=== PATIENT | female | born 1935 | race Caucasian/White ===

== ENCOUNTER 2016-03-21 18:13 | Emergency (ER) | payer MEDICARE, OTHER ==
[~2016-03-21] VITALS: Wt 79.4 kg
[~2016-03-21 18:13] MED LIST: ALBUTEROL2.5 MG/0.5 INH; ASPI-COR81 MG PO; ASPIR 8181 MG PO; DYAZIDE 25 MG-31 CAP PO; FLOVENT 110 M110 MCG INH; KERLONE PO; LAMISIL AT11 TP; LEVAQUIN750 MG PO; MACROBID100 M1 PO; PREDNISONE20 M1 PO; PROVERA10 MG PO; PYRIDIUM200 MG PO; SUPER EPA1 SGL PO; VIBRAMYCIN100 MG PO; VITAMIN D1000 IU PO; ZITHROMAX250 MG PO
[2016-03-21 18:53] LABS: BILIRUBIN NEGATIVE (NEGATIVE); BLOOD NEGATIVE (NEGATIVE); CLARITY CLEAR (CLEAR); COLOR YELLOW (YELLOW); GLUCOSE NEGATIVE (NEGATIVE); KETONE NEGATIVE (NEGATIVE); LEUKO ESTERASE TRACE (NEGATIVE); NITRITE NEGATIVE (NEGATIVE); PH 5.5 (5.0-9.0); PROTEIN NEGATIVE (NEGATIVE); SPECIFIC GRAVITY 1.015 (1.005-1.030); UROBILINOGEN 0.2 E.U./dl (0.2-1.0)
[2016-03-21 18:59] LABS: MUCOUS TRACE; RBC 0-2 rbc/hpf (0-2); URINE REFLEX COMMENT YES (NO)
[2016-03-21 19:03] VITALS: BP 151/64
[2016-03-21 19:36] LABS: BASO % 0.5 % (0.0-1.0); EOS # 0.2 10*3/uL (0.0-0.4); EOS % 1.9 % (1.0-4.0); HEMATOCRIT 42.4 % (37.0-47.0); HEMOGLOBIN 13.7 g/dl (12.0-16.0); LYMPH # 1.2 10*3/uL (1.3-4.4); LYMPH % 14.7 % (27.0-41.0); MEAN CELL VOLUME 84.8 fl (81.0-99.0); MEAN CORPUSCULAR HGB 27.4 pg (27.0-31.0); MEAN CORPUSCULAR HGB CONC 32.3 g/dl (33.0-37.0); MEAN PLATELET VOLUME 9.5 fl (9.6-12.3); MONO # 1.1 10*3/uL (0.1-1.0); MONO % 13.1 % (3.0-9.0); NEUT # 5.6 10*3/uL (2.3-7.9); NEUT % 69.6 % (47.0-73.0); PLATELET COUNT AUTOMATED 150 10*3/uL (130-400); WHITE BLOOD COUNT 8.1 10*3/uL (4.8-10.8)
[2016-03-21 19:49] LABS: BUN 16 mg/dl (7-24); CARBON DIOXIDE 27 mmol/L (21-32); CHLORIDE 101 mmol/L (98-107); EST GLOM FILT AFRICAN AMERICAN > 60 ml/min; GLUCOSE 108 mg/dL (65-99); SODIUM 139 mmol/L (136-145)
[2016-03-21] MEDS ORDERED: ZYRTEC10 MG PO (20:09)
[2016-03-21] MEDS ORDERED: PREDNISONE10 MG PO (20:09)
== END 2016-03-21 20:14 | disposition home or self-care (01) ==
LOC: ED 18:13
PROVIDERS: Nurse Practitioner Family
DX: B34.9 Viral infection, unspecified (principal); Z88.1 Allergy status to other antibiotic agents; Z88.6 Allergy status to analgesic agent; Z91.018 Allergy to other foods; Z79.899 Other long term (current) drug therapy

== ENCOUNTER 2016-09-03 12:54 | Emergency (ER) | payer MEDICARE, OTHER ==
[~2016-09-03] VITALS: Ht 152.4 cm; Wt 77.1 kg
[~2016-09-03 12:54] MED LIST changes: +PREDNISONE10 MG PO; +ZYRTEC10 MG PO
[2016-09-03] MEDS ORDERED: ASPIRIN ADULT L81 M2 PO (13:07)
[2016-09-03 14:11] LABS: BASO # 0.1 10*3/uL (0.0-0.1); BASO % 0.4 % (0.0-1.0); EOS # 0.3 10*3/uL (0.0-0.4); EOS % 2.4 % (1.0-4.0); HEMATOCRIT 32.6 % (37.0-47.0); HEMOGLOBIN 10.6 g/dl (12.0-16.0); IG # 0.1 10*3/uL (0.0-0.1); LYMPH # 2.2 10*3/uL (1.3-4.4); LYMPH % 16.9 % (27.0-41.0); MEAN CELL VOLUME 83.4 fl (81.0-99.0); MEAN CORPUSCULAR HGB 27.1 pg (27.0-31.0); MEAN CORPUSCULAR HGB CONC 32.5 g/dl (33.0-37.0); MEAN PLATELET VOLUME 9.4 fl (9.6-12.3); MONO # 0.8 10*3/uL (0.1-1.0); MONO % 6.4 % (3.0-9.0); NEUT # 9.7 10*3/uL (2.3-7.9); NEUT % 73.5 % (47.0-73.0); PLATELET COUNT AUTOMATED 183 10*3/uL (130-400); RED BLOOD COUNT 3.91 10*6/uL (4.10-5.10); RED CELL DISTRI WIDTH 13.6 % (0-14.5); WHITE BLOOD COUNT 13.2 10*3/uL (4.8-10.8)
[2016-09-03 14:24] LABS: ALBUMIN 3.5 gm/dl (3.1-4.5); ALKALINE PHOSPHATASE 53 U/L (45-117); BILIRUBIN, TOTAL 0.3 mg/dl (0.2-1.0); BUN 18 mg/dl (7-24); CARBON DIOXIDE 30 mmol/L (21-32); CHLORIDE 100 mmol/L (98-107); EST GLOM FILT AFRICAN AMERICAN > 60 ml/min; GLUCOSE 145 mg/dL (65-99); POTASSIUM 3.5 mmol/L (3.5-5.1); SGOT/AST 13 IU/L (3-35); SGPT/ALT 17 U/L (12-78); SODIUM 138 mmol/L (136-145); TOTAL PROTEIN 6.9 gm/dL (6.4-8.2)
[2016-09-03 14:44] VITALS: BP 118/72
== END 2016-09-03 16:39 | disposition home or self-care (01) ==
LOC: ED 12:54
PROVIDERS: Registered Nurse
DX: N93.9 Abnormal uterine and vaginal bleeding, unspecified (principal); N85.9 Noninflammatory disorder of uterus, unspecified; Z88.1 Allergy status to other antibiotic agents; Z88.6 Allergy status to analgesic agent; Z91.018 Allergy to other foods; Z79.82 Long term (current) use of aspirin

== ENCOUNTER 2016-10-07 08:28 | Emergency (ER) | payer MEDICARE, OTHER ==
[~2016-10-07] VITALS: Ht 147.3 cm; Wt 77.1 kg
[~2016-10-07 08:28] MED LIST changes: +ASPIRIN ADULT L81 M2 PO
[2016-10-07 08:32] VITALS: BP 152/56
[2016-10-07 09:03] LABS: BASO # 0.1 10*3/uL (0.0-0.1); BASO % 0.6 % (0.0-1.0); EOS # 0.5 10*3/uL (0.0-0.4); EOS % 4.5 % (1.0-4.0); HEMATOCRIT 35.1 % (37.0-47.0); HEMOGLOBIN 11.1 g/dl (12.0-16.0); LYMPH # 2.3 10*3/uL (1.3-4.4); LYMPH % 21.5 % (27.0-41.0); MEAN CELL VOLUME 83.8 fl (81.0-99.0); MEAN CORPUSCULAR HGB 26.5 pg (27.0-31.0); MEAN CORPUSCULAR HGB CONC 31.6 g/dl (33.0-37.0); MEAN PLATELET VOLUME 8.9 fl (9.6-12.3); MONO # 0.8 10*3/uL (0.1-1.0); MONO % 7.4 % (3.0-9.0); NEUT # 6.9 10*3/uL (2.3-7.9); NEUT % 65.7 % (47.0-73.0); PLATELET COUNT AUTOMATED 185 10*3/uL (130-400); RED BLOOD COUNT 4.19 10*6/uL (4.10-5.10); RED CELL DISTRI WIDTH 13.7 % (0-14.5); WHITE BLOOD COUNT 10.5 10*3/uL (4.8-10.8)
[2016-10-07 09:12] LABS: PROTHROMBIN TIME 11.1 SECONDS (9.0-12.4)
[2016-10-07 09:17] LABS: ALBUMIN 3.7 gm/dl (3.1-4.5); ALKALINE PHOSPHATASE 63 U/L (45-117); BILIRUBIN, TOTAL 0.3 mg/dl (0.2-1.0); BUN 18 mg/dl (7-24); C-REACTIVE PROTEIN 0.78 MG/DL (0-0.3); CARBON DIOXIDE 28 mmol/L (21-32); CHLORIDE 104 mmol/L (98-107); EST GLOM FILT AFRICAN AMERICAN > 60 ml/min; GLUCOSE 107 mg/dL (65-99); MAGNESIUM 1.7 mg/dL (1.5-2.1); POTASSIUM 3.8 mmol/L (3.5-5.1); SGOT/AST 14 IU/L (3-35); SGPT/ALT 16 U/L (12-78); SODIUM 138 mmol/L (136-145); TOTAL PROTEIN 7.7 gm/dL (6.4-8.2)
[2016-10-07] MEDS ORDERED: PREDNISONE20 M1 PO (10:50)
== END 2016-10-07 11:26 | disposition home or self-care (01) ==
LOC: ED 08:28
PROVIDERS: Emergency Medicine
DX: G89.29 Other chronic pain (principal); M25.561 Pain in right knee; Z88.1 Allergy status to other antibiotic agents; Z88.6 Allergy status to analgesic agent; Z91.018 Allergy to other foods; Z79.899 Other long term (current) drug therapy; Z88.4 Allergy status to anesthetic agent; Z79.82 Long term (current) use of aspirin

== ENCOUNTER 2017-01-29 18:15 | Emergency (ER) | payer MEDICARE, OTHER ==
[~2017-01-29] VITALS: Ht 154.9 cm; Wt 77.1 kg
[2017-01-29 18:26] VITALS: BP 160/50
[2017-01-29 18:59] LABS: BASO % 0.4 % (0.0-1.0); EOS # 0.4 10*3/uL (0.0-0.4); EOS % 3.9 % (1.0-4.0); HEMATOCRIT 33.5 % (37.0-47.0); HEMOGLOBIN 10.4 g/dl (12.0-16.0); LYMPH # 2.5 10*3/uL (1.3-4.4); LYMPH % 22.7 % (27.0-41.0); MEAN CELL VOLUME 81.7 fl (81.0-99.0); MEAN CORPUSCULAR HGB 25.4 pg (27.0-31.0); MEAN PLATELET VOLUME 9.4 fl (9.6-12.3); MONO # 0.8 10*3/uL (0.1-1.0); MONO % 7.5 % (3.0-9.0); NEUT # 7.1 10*3/uL (2.3-7.9); NEUT % 65.2 % (47.0-73.0); PLATELET COUNT AUTOMATED 212 10*3/uL (130-400); RED CELL DISTRI WIDTH 14.2 % (0-14.5); WHITE BLOOD COUNT 10.9 10*3/uL (4.8-10.8)
[2017-01-29 19:12] LABS: CREATININE 1.14 mg/dL (0.55-1.02); POTASSIUM 3.5 mmol/L (3.5-5.1)
== END 2017-01-29 20:33 | disposition home or self-care (01) ==
LOC: ED 18:15
PROVIDERS: Physician Assistant
DX: N93.9 Abnormal uterine and vaginal bleeding, unspecified (principal); Z79.899 Other long term (current) drug therapy; Z79.82 Long term (current) use of aspirin; Z88.1 Allergy status to other antibiotic agents; Z88.5 Allergy status to narcotic agent

== ENCOUNTER 2017-04-09 06:25 | Emergency (ER) | payer MEDICARE, OTHER ==
[~2017-04-09] VITALS: Ht 152.4 cm; Wt 77.1 kg
[2017-04-09 06:44] VITALS: BP 152/53
[2017-04-09 07:50] LABS: BASO # 0.1 10*3/uL (0.0-0.1); BASO % 0.5 % (0.0-1.0); EOS # 0.5 10*3/uL (0.0-0.4); EOS % 4.7 % (1.0-4.0); HEMATOCRIT 31.9 % (37.0-47.0); HEMOGLOBIN 9.8 g/dl (12.0-16.0); LYMPH # 1.9 10*3/uL (1.3-4.4); LYMPH % 18.9 % (27.0-41.0); MEAN CORPUSCULAR HGB 23.3 pg (27.0-31.0); MEAN CORPUSCULAR HGB CONC 30.7 g/dl (33.0-37.0); MEAN PLATELET VOLUME 8.9 fl (9.6-12.3); MONO # 0.6 10*3/uL (0.1-1.0); MONO % 6.3 % (3.0-9.0); NEUT # 7.1 10*3/uL (2.3-7.9); NEUT % 69.2 % (47.0-73.0); PLATELET COUNT AUTOMATED 236 10*3/uL (130-400); RED CELL DISTRI WIDTH 15.1 % (0-14.5); WHITE BLOOD COUNT 10.2 10*3/uL (4.8-10.8)
[2017-04-09 08:00] LABS: ACT PARTIAL THROMBO TIME 24.2 SECONDS (20.8-31.5); INTERNATIONAL NORM RATIO 1.1 (2.0-3.5)
[2017-04-09 08:06] LABS: ALBUMIN 3.6 gm/dl (3.1-4.5); ALKALINE PHOSPHATASE 73 U/L (45-117); BUN 16 mg/dl (7-24); CHLORIDE 102 mmol/L (98-107); LIPASE 124 U/L (73-393); POTASSIUM 3.9 mmol/L (3.5-5.1); SGOT/AST 12 IU/L (3-35); SGPT/ALT 13 U/L (12-78); SODIUM 139 mmol/L (136-145); TOTAL PROTEIN 7.9 gm/dL (6.4-8.2)
[2017-04-09 08:11] LABS: TROPONIN I < 0.015 ng/ml (<0.045)
[2017-04-10] MEDS ORDERED: PREDNISONE10 MG PO (12:57)
[2017-04-10] MEDS ORDERED: CYCLOBENZAPRINE10 MG PO (12:57)
== END 2017-04-09 10:08 | disposition home or self-care (01) ==
LOC: ED 06:25
PROVIDERS: Emergency Medicine
DX: S29.012A Strain of muscle and tendon of back wall of thorax, initial encounter (principal); R73.9 Hyperglycemia, unspecified; Z88.6 Allergy status to analgesic agent; Z88.1 Allergy status to other antibiotic agents; Z79.899 Other long term (current) drug therapy; Z79.82 Long term (current) use of aspirin; X58.XXXA Exposure to other specified factors, initial encounter; Y93.89 Activity, other specified; Y92.89 Other specified places as the place of occurrence of the external cause; Y99.8 Other external cause status

== ENCOUNTER 2017-04-10 10:50 | Emergency (ER) | payer MEDICARE, OTHER ==
[~2017-04-10] VITALS: Ht 152.4 cm; Wt 77.1 kg
[2017-04-10] MEDS ORDERED: CYCLOBENZAPRINE10 MG PO (12:57)
[2017-04-10] MEDS ORDERED: PREDNISONE10 MG PO (12:57)
[2017-04-10 13:02] VITALS: BP 136/42
== END 2017-04-10 13:02 | disposition home or self-care (01) ==
LOC: ED 10:50
DX: M25.511 Pain in right shoulder (principal); Z88.1 Allergy status to other antibiotic agents; Z88.6 Allergy status to analgesic agent; Z91.018 Allergy to other foods; Z79.899 Other long term (current) drug therapy

== ENCOUNTER 2017-04-30 22:03 | Emergency (ER) | payer MEDICARE, OTHER ==
[~2017-04-30] VITALS: Ht 152.4 cm; Wt 77.1 kg
[2017-04-30 22:03] VITALS: BP 180/72
[~2017-04-30 22:03] MED LIST changes: +CYCLOBENZAPRINE10 MG PO
[2017-04-30] MEDS ORDERED: ACYCLOVIR800 MG PO (22:23)
[2017-04-30] MEDS ORDERED: MOTRIN 600 MG E4 TAB PO (22:23)
== END 2017-04-30 23:12 | disposition home or self-care (01) ==
LOC: ED 22:03
DX: B02.9 Zoster without complications (principal); R21 Rash and other nonspecific skin eruption; Z79.899 Other long term (current) drug therapy; Z88.1 Allergy status to other antibiotic agents; Z88.5 Allergy status to narcotic agent

== ENCOUNTER 2017-05-04 01:24 | Emergency (ER) | payer MEDICARE, OTHER ==
[~2017-05-04] VITALS: Ht 152.4 cm; Wt 77.1 kg
[~2017-05-04 01:24] MED LIST changes: +ACYCLOVIR800 MG PO; +MOTRIN 600 MG E4 TAB PO
[2017-05-04 01:28] VITALS: BP 120/50
== END 2017-05-04 01:37 | disposition home or self-care (01) ==
LOC: ED 01:24
DX: B02.9 Zoster without complications (principal); Z88.1 Allergy status to other antibiotic agents; Z88.5 Allergy status to narcotic agent; Z79.899 Other long term (current) drug therapy

== ENCOUNTER 2017-05-17 19:27 | Emergency (ER) | payer MEDICARE, OTHER ==
[~2017-05-17 19:27] MED LIST changes: +FAMCICLOVIR500 MG PO; +NEURONTIN100 MG PO; +TRAMADOL HCL50 MG PO; +ZOFRAN ODT4 MG SL; +ZOVIRAX30 GM T
[2017-05-17 19:41] VITALS: BP 130/70
[2017-05-17] MEDS ORDERED: ZOFRAN4 MG PO (19:55)
== END 2017-05-17 19:59 | disposition home or self-care (01) ==
LOC: ED 19:27
DX: B02.8 Zoster with other complications (principal); R03.0 Elevated blood-pressure reading, without diagnosis of hypertension; Z79.899 Other long term (current) drug therapy; Z91.041 Radiographic dye allergy status; Z88.1 Allergy status to other antibiotic agents; Z88.5 Allergy status to narcotic agent; Z91.018 Allergy to other foods

== ENCOUNTER → 2017-08-23 | Outpatient (CLI) | payer MEDICARE, OTHER ==
[~2017-08-23] MED LIST changes: +IRON325 M1 PO; +OMEPRAZOLE20 M2 PO; +ZOFRAN4 MG PO
[2017-08-23 15:06] LABS: HEMATOCRIT 22.2 % (37.0-47.0); HEMOGLOBIN 6.2 g/dl (12.0-16.0); MEAN CELL VOLUME 71.6 fl (81.0-99.0); MEAN CORPUSCULAR HGB CONC 27.9 g/dl (33.0-37.0); MEAN PLATELET VOLUME 9.7 fl (9.6-12.3); RED BLOOD COUNT 3.1 10*6/uL (4.10-5.10); RED CELL DISTRI WIDTH 17.1 % (0-14.5); WHITE BLOOD COUNT 11.9 10*3/uL (4.8-10.8)
[2017-08-23 15:34] LABS: ALBUMIN 3.5 gm/dl (3.1-4.5); POTASSIUM 3.5 mmol/L (3.5-5.1)
[2017-08-23 15:38] LABS: CREATININE 1.24 mg/dL (0.55-1.02); TOTAL PROTEIN 7.9 gm/dL (6.4-8.2)
== END | disposition home or self-care (01) ==
LOC: LAB 14:10
PROVIDERS: Family Medicine
DX: I10 Essential (primary) hypertension (principal); E78.00 Pure hypercholesterolemia, unspecified; E55.9 Vitamin D deficiency, unspecified; D70.9 Neutropenia, unspecified; R53.83 Other fatigue

== ENCOUNTER 2017-09-03 14:08 | Emergency (ER) | payer MEDICARE, OTHER ==
[~2017-09-03] VITALS: Ht 152.4 cm; Wt 77.1 kg
--- NOTE | ~2017-09-03 | EKG ---
[place], [place] ELECTROCARDIOGRAM REPORT NAME: JESUS FRIEDMAN UNIT #: [id number] ROOM: DOCTOR: EPIPHANY DRAFT REPORT BIRTHDATE: [birth year] [facility] Test Date: 2017-09-03 Test Time: 14:32:45 Pat Name: JESUS FRIEDMAN Department: Room: Gender: F Furnace Attendant: : 1935 Requested By: YANN QUIROZ Order Number: [id number] Reading MD: Felton Salgado MD Measurements Intervals [place] Rate: 78 P: 25 MD: 189 QRS: -7 QRSD: 86 T: 25 QT: 400 QTc: 456 Interpretive Statements Sinus rhythm Nonspecific ST-T changes Electronically Signed On 09-04-2017 14:42:25 PDT by Felton Salgado MD CM:EKGRPT:ELECTROCARDIOGRAM REPORT [id number] YANN QUIROZ EPIPHANY DRAFT REPORT YANN QUIROZ
[~2017-09-03 14:08] MED LIST changes: -IRON325 M1 PO; -OMEPRAZOLE20 M2 PO
[2017-09-03 14:37] LABS: HEMATOCRIT 18.7 % (37.0-47.0); MEAN CORPUSCULAR HGB 18.8 pg (27.0-31.0); MEAN CORPUSCULAR HGB CONC 27.3 g/dl (33.0-37.0); MEAN PLATELET VOLUME 9.2 fl (9.6-12.3); PLATELET COUNT AUTOMATED 196 10*3/uL (130-400); RED BLOOD COUNT 2.71 10*6/uL (4.10-5.10); RED CELL DISTRI WIDTH 17.4 % (0-14.5); WHITE BLOOD COUNT 9.7 10*3/uL (4.8-10.8)
[2017-09-03 14:49] LABS: ACT PARTIAL THROMBO TIME 20.4 SECONDS (20.8-31.5)
[2017-09-03 14:54] LABS: ALBUMIN 3.7 gm/dl (3.1-4.5); ALKALINE PHOSPHATASE 66 U/L (45-117); BUN 21 mg/dl (7-24); CHLORIDE 101 mmol/L (98-107); CREATININE 1.17 mg/dL (0.55-1.02); POTASSIUM 3.7 mmol/L (3.5-5.1); SGOT/AST 10 IU/L (3-35); SGPT/ALT 13 U/L (12-78); SODIUM 137 mmol/L (136-145); TOTAL PROTEIN 7.6 gm/dL (6.4-8.2)
[2017-09-03 14:55] LABS: TROPONIN I < 0.015 ng/ml (<0.045)
[2017-09-03 14:58] LABS: MICROCYTOSIS SLIGHT; PLATELET SUFFICIENCY NORMAL (NORMAL); TOTAL CELLS COUNTED 100 #CELLS
[2017-09-03 14:59] LABS: POLYCHROMASIA SLIGHT
[2017-09-03 15:02] LABS: HEMOGLOBIN 5.1 g/dl (12.0-16.0)
[2017-09-03 16:33] VITALS: BP 152/58
[2017-09-22] MEDS ORDERED: IRON325 M1 PO (14:53)
[2017-09-22] MEDS ORDERED: OMEPRAZOLE20 M2 PO (15:10)
== END 2017-09-03 17:13 | disposition short-term general hospital (02) ==
LOC: ED 14:08
PROVIDERS: Nurse Practitioner Family
DX: D62 Acute posthemorrhagic anemia (principal); N93.9 Abnormal uterine and vaginal bleeding, unspecified; Z91.041 Radiographic dye allergy status; Z88.1 Allergy status to other antibiotic agents; Z88.6 Allergy status to analgesic agent; Z91.018 Allergy to other foods; Z79.899 Other long term (current) drug therapy

== ENCOUNTER → 2017-09-08 | Outpatient (CLI) | payer MEDICARE, OTHER ==
[~2017-09-08] MED LIST changes: +IRON325 M1 PO; +OMEPRAZOLE20 M2 PO
[2017-09-08 11:01] LABS: HEMOGLOBIN 10.9 g/dl (12.0-16.0); MEAN CELL VOLUME 77.2 fl (81.0-99.0); MEAN CORPUSCULAR HGB 22.8 pg (27.0-31.0); MEAN CORPUSCULAR HGB CONC 29.5 g/dl (33.0-37.0); MEAN PLATELET VOLUME 9.6 fl (9.6-12.3); RED BLOOD COUNT 4.79 10*6/uL (4.10-5.10); RED CELL DISTRI WIDTH 23.7 % (0-14.5); WHITE BLOOD COUNT 12.3 10*3/uL (4.8-10.8)
[2017-09-08 11:10] LABS: RETICULOCYTE % 3.93 % (0.50-2.50)
[2017-09-08 11:25] LABS: IRON 124 ug/dL (50-170); TOTAL IRON BINDING CAPACITY 414 ug/dl (250-450)
== END | disposition home or self-care (01) ==
LOC: LAB 10:29
PROVIDERS: Family Medicine
DX: D64.9 Anemia, unspecified (principal); R53.83 Other fatigue; R06.02 Shortness of breath

== ENCOUNTER → 2017-09-09 | Outpatient (CLI) | payer MEDICARE, OTHER | END | disposition home or self-care (01) | LOC: CARD 13:09 | DX: R01.1 Cardiac murmur, unspecified (principal) ==

== ENCOUNTER → 2017-09-20 | Outpatient (CLI) | payer MEDICARE, OTHER ==
[2017-09-20 08:11] LABS: HEMATOCRIT 36.9 % (37.0-47.0); HEMOGLOBIN 10.9 g/dl (12.0-16.0); MEAN CELL VOLUME 80.4 fl (81.0-99.0); MEAN CORPUSCULAR HGB 23.7 pg (27.0-31.0); MEAN CORPUSCULAR HGB CONC 29.5 g/dl (33.0-37.0); MEAN PLATELET VOLUME 8.9 fl (9.6-12.3); RED BLOOD COUNT 4.59 10*6/uL (4.10-5.10); RED CELL DISTRI WIDTH 24.1 % (0-14.5); WHITE BLOOD COUNT 9.4 10*3/uL (4.8-10.8)
== END | disposition home or self-care (01) ==
LOC: LAB 07:51
PROVIDERS: Family Medicine
DX: D64.9 Anemia, unspecified (principal)

== ENCOUNTER → 2017-09-24 | Outpatient (CLI) | payer MEDICARE, OTHER ==
[2017-09-24 08:09] LABS: PHOSPHOROUS 3.6 mg/dL (2.5-4.9)
== END | disposition home or self-care (01) ==
LOC: LAB 07:06
DX: N85.9 Noninflammatory disorder of uterus, unspecified (principal)

== ENCOUNTER → 2017-09-29 | Day surgery (SDC) | payer MEDICARE, OTHER ==
[~2017-09-29] VITALS: Ht 152.4 cm; Wt 77.1 kg
--- NOTE | ~2017-09-29 | O ---
[place], [place] OPERATIVE NOTE NAME: ELDERJESUS Alonso UNIT #: [id number] ROOM: DOCTOR: MENDEZ PIMENTEL MD BIRTHDATE: [birth year] DOS: 09/29/2017 GASTROENDOSCOPIC REPORT INDICATION: An 81-year-old patient, who was presented with chief complaint of having been discovered to have a pelvic mass and has been a concern if there is a pathology in the colon involved with rectal bleed. ALLERGIES: KEFLEX, CODEINE AND NORVASC. PAST MEDICAL HISTORY: Hypertension. PAST SURGICAL HISTORY: None. SOCIAL HISTORY: Nonsmoker, nonalcohol consumer. ALLERGIES: IVP DYE AND LEVAQUIN FAR FOOD IS CONCERNED ORANGE JUICES. PROCEDURE: Today's procedure part of investigation is colonoscopy plus piecemeal polypectomy x 2. PREMEDICATION: Propofol. SCOPE: Olympus folding colonoscope 10L video. REPORT: After putting the patient in left lateral position and application of lubricant to the scope, the scope was introduced. Thereafter, under direct visualization, advanced through the length of colon without difficulty. Base of the cecum explored, appendiceal orifice identified, ileocecal valve was defined. Scope was gradually withdrawn back to the rectal pouch. Two sessile polypoid lesion with piecemeal polypectomy removed. The patient extubated and tolerated procedure well. IMPRESSION: Two small sessile polypoid lesion rectal pouch is status post piecemeal polypectomy, otherwise normal colonoscopic examination. PLAN AND DISCUSSION: The patient is deferred for followup in a pelvic mass that she is telling me, I do not have the data regarding the above findings. Thank you very much again for your very kind referral. [place], [place] OPERATIVE NOTE NAME: ELDERJESUS UNIT #: [id number] ROOM: DOCTOR: MENDEZ PIMENTEL MD BIRTHDATE: [birth year] MENDEZ PIMENTEL MD CM:OPRECORD:OPERATIVE NOTE 4 8 MENDEZ PIMENTEL MD 09/29/17916 interface
[2017-09-29 07:01] VITALS: BP 133/101
[2017-09-29 08:11] VITALS: BP 105/40
[2017-09-29 08:26] VITALS: BP 123/55
[2017-09-29 08:41] VITALS: BP 141/56
== END | disposition home or self-care (01) ==
LOC: SDC 09-23 15:30
DX: K62.1 Rectal polyp (principal); K62.5 Hemorrhage of anus and rectum; I10 Essential (primary) hypertension; K21.9 Gastro-esophageal reflux disease without esophagitis; F41.9 Anxiety disorder, unspecified; J45.909 Unspecified asthma, uncomplicated; D64.9 Anemia, unspecified; E66.9 Obesity, unspecified; Z88.1 Allergy status to other antibiotic agents; Z88.5 Allergy status to narcotic agent; Z88.8 Allergy status to other drugs, medicaments and biological substances; Z91.018 Allergy to other foods; Z87.891 Personal history of nicotine dependence; Z68.33 Body mass index [BMI] 33.0-33.9, adult

== ENCOUNTER → 2017-12-19 | Outpatient (CLI) | payer MEDICARE, OTHER ==
[2017-12-19 09:02] LABS: HEMATOCRIT 35.2 % (37.0-47.0); HEMOGLOBIN 10.7 g/dl (12.0-16.0); MEAN CELL VOLUME 74.4 fl (81.0-99.0); MEAN CORPUSCULAR HGB 22.6 pg (27.0-31.0); MEAN CORPUSCULAR HGB CONC 30.4 g/dl (33.0-37.0); MEAN PLATELET VOLUME 9.4 fl (9.6-12.3); RED BLOOD COUNT 4.73 10*6/uL (4.10-5.10); RED CELL DISTRI WIDTH 15.8 % (0-14.5); WHITE BLOOD COUNT 10.5 10*3/uL (4.8-10.8)
[2017-12-19 09:32] LABS: ALBUMIN 3.4 gm/dl (3.1-4.5); CREATININE 1.3 mg/dL (0.55-1.02)
[2017-12-19 09:37] LABS: POTASSIUM 3.7 mmol/L (3.5-5.1)
== END | disposition home or self-care (01) ==
LOC: LAB 08:27
PROVIDERS: Family Medicine
DX: D64.9 Anemia, unspecified (principal); R53.83 Other fatigue

== ENCOUNTER → 2018-03-21 | Outpatient (CLI) | payer MEDICARE, OTHER ==
[2018-03-21 14:38] LABS: HEMATOCRIT 40.1 % (37.0-47.0); MEAN CELL VOLUME 82.3 fl (81.0-99.0); MEAN CORPUSCULAR HGB 26.7 pg (27.0-31.0); MEAN CORPUSCULAR HGB CONC 32.4 g/dl (33.0-37.0); MEAN PLATELET VOLUME 9.4 fl (9.6-12.3); RED BLOOD COUNT 4.87 10*6/uL (4.10-5.10); RED CELL DISTRI WIDTH 15.3 % (0-14.5); WHITE BLOOD COUNT 8.6 10*3/uL (4.8-10.8)
[2018-03-21 15:09] LABS: ALBUMIN 3.5 gm/dl (3.1-4.5); CREATININE 1.21 mg/dL (0.55-1.02); POTASSIUM 3.8 mmol/L (3.5-5.1); TOTAL PROTEIN 7.7 gm/dL (6.4-8.2)
== END | disposition home or self-care (01) ==
LOC: LAB 14:09
PROVIDERS: Family Medicine
DX: E55.9 Vitamin D deficiency, unspecified (principal); E78.00 Pure hypercholesterolemia, unspecified; E74.9 Disorder of carbohydrate metabolism, unspecified; R53.83 Other fatigue

== ENCOUNTER → 2018-06-17 | Outpatient (CLI) | payer MEDICARE, OTHER ==
[~2018-06-17] MED LIST changes: +MOTION SICKNESS25 MG PO
[2018-06-17 10:46] LABS: ALBUMIN 3.8 gm/dl (3.1-4.5); BUN 22 mg/dl (7-24); CHLORIDE 104 mmol/L (98-107); CREATININE 1.05 mg/dL (0.55-1.02); PHOSPHOROUS 3.1 mg/dL (2.5-4.9); POTASSIUM 4.1 mmol/L (3.5-5.1); SODIUM 138 mmol/L (136-145)
== END | disposition home or self-care (01) ==
LOC: LAB 09:53
PROVIDERS: Family Medicine
DX: E55.9 Vitamin D deficiency, unspecified (principal); N18.4 Chronic kidney disease, stage 4 (severe)

== ENCOUNTER 2018-09-01 06:01 | Emergency (ER) | payer MEDICARE, OTHER ==
[~2018-09-01] VITALS: Ht 152.4 cm; Wt 81.6 kg
--- NOTE | ~2018-09-01 | EKG ---
[place], [place] ELECTROCARDIOGRAM REPORT NAME: JESUS FRIEDMAN UNIT #: [id number] ROOM: DOCTOR: EPIPHANY DRAFT REPORT BIRTHDATE: [birth year] [facility] Test Date: 2018-09-01 Test Time: 06:39:23 Pat Name: JESUS FRIEDMAN Department: Room: Gender: F Real Estate Lawyer: : 1935 Requested By: CHAN MAHMOOD Order Number: [id number] Reading MD: Robbi Dennis MD Measurements Intervals [place] Rate: 59 P: 33 MT: 209 QRS: -3 QRSD: 84 T: 62 QT: 421 QTc: 417 Interpretive Statements Sinus rhythm Low voltage, extremity and precordial leads Consider anterior infarct Compared to ECG 09/03/2017 14:32:45 Low QRS voltage now present Myocardial infarct finding now present ST (T wave) deviation no longer present Electronically Signed On 09-06-2018 4:05:16 PDT by Robbi Dennis MD CM:EKGRPT:ELECTROCARDIOGRAM REPORT [id number] CHAN MAHMOOD MD EPIPHKAMILLA DRAFT REPORT CHAN MAHMOOD MD
[~2018-09-01 06:01] MED LIST changes: -MOTION SICKNESS25 MG PO
[2018-09-01 07:09] LABS: BASO % 0.5 % (0.0-1.0); EOS # 0.4 10*3/uL (0.0-0.4); EOS % 5.5 % (1.0-4.0); HEMATOCRIT 43.8 % (37.0-47.0); LYMPH # 1.9 10*3/uL (1.3-4.4); LYMPH % 23.7 % (27.0-41.0); MEAN CELL VOLUME 86.9 fl (81.0-99.0); MEAN CORPUSCULAR HGB 27.8 pg (27.0-31.0); MEAN PLATELET VOLUME 9.1 fl (9.6-12.3); MONO # 0.6 10*3/uL (0.1-1.0); MONO % 7.6 % (3.0-9.0); NEUT % 62.3 % (47.0-73.0); PLATELET COUNT AUTOMATED 152 10*3/uL (130-400); RED BLOOD COUNT 5.04 10*6/uL (4.10-5.10); RED CELL DISTRI WIDTH 12.4 % (0-14.5)
[2018-09-01 07:21] LABS: ACT PARTIAL THROMBO TIME 28.2 SECONDS (20.0-32.1)
[2018-09-01 07:27] LABS: ALBUMIN 3.6 gm/dl (3.1-4.5); ALKALINE PHOSPHATASE 79 U/L (45-117); BUN 18 mg/dl (7-24); CHLORIDE 104 mmol/L (98-107); CREATININE 0.95 mg/dL (0.55-1.02); LIPASE 112 U/L (73-393); POTASSIUM 3.8 mmol/L (3.5-5.1); SGOT/AST 31 IU/L (3-35); SGPT/ALT 36 U/L (12-78); SODIUM 139 mmol/L (136-145); TOTAL PROTEIN 7.7 gm/dL (6.4-8.2)
[2018-09-01 07:30] LABS: TROPONIN I < 0.015 ng/ml (<0.045)
[2018-09-01 08:40] VITALS: BP 138/44
[2018-09-01] MEDS ORDERED: MOTION SICKNESS25 MG PO (08:49)
== END 2018-09-01 08:50 | disposition home or self-care (01) ==
LOC: ED 06:01
PROVIDERS: Emergency Medicine Emergency Medical Services
DX: H83.09 Labyrinthitis, unspecified ear (principal); R42 Dizziness and giddiness; R11.2 Nausea with vomiting, unspecified; R19.7 Diarrhea, unspecified; R79.1 Abnormal coagulation profile; Z91.041 Radiographic dye allergy status; Z88.1 Allergy status to other antibiotic agents; Z88.6 Allergy status to analgesic agent; Z91.018 Allergy to other foods; Z88.4 Allergy status to anesthetic agent; Z79.899 Other long term (current) drug therapy

== ENCOUNTER 2018-09-16 07:06 | Emergency (ER) | payer MEDICARE, OTHER ==
[~2018-09-16] VITALS: Ht 149.8 cm; Wt 81.6 kg
--- NOTE | ~2018-09-16 | EKG ---
[place], [place] ELECTROCARDIOGRAM REPORT NAME: JESUS FRIEDMAN UNIT #: [id number] ROOM: DOCTOR: EPIPHANY DRAFT REPORT BIRTHDATE: [birth year] [facility] Test Date: 2018-09-16 Test Time: 07:47:07 Pat Name: JESUS FRIEDMAN Department: Room: [address] Gender: F Support Coordinator: : 1935 Requested By: ROXANE AVILA Order Number: [id number] Reading MD: Enrico Patel Measurements Intervals [place] Rate: 57 P: 12 [place]: 208 QRS: -11 QRSD: 85 T: 41 QT: 417 QTc: 406 Interpretive Statements Sinus rhythm Low voltage, precordial leads Anteroseptal infarct, old Compared to ECG 09/01/2018 06:39:23 No significant changes Electronically Signed On 09-16-2018 12:51:53 PDT by Enrico Patel CM:EKGRPT:ELECTROCARDIOGRAM REPORT [id number] ROXANE BARRAGAN DRAFT REPORT ROXANE AVILA MD
[~2018-09-16 07:06] MED LIST changes: +MOTION SICKNESS25 MG PO
[2018-09-16 07:55] LABS: BASO # 0.1 10*3/uL (0.0-0.1); BASO % 0.7 % (0.0-1.0); EOS # 0.4 10*3/uL (0.0-0.4); EOS % 5.4 % (1.0-4.0); HEMATOCRIT 40.8 % (37.0-47.0); HEMOGLOBIN 13.1 g/dl (12.0-16.0); LYMPH # 1.5 10*3/uL (1.3-4.4); LYMPH % 20.7 % (27.0-41.0); MEAN CORPUSCULAR HGB 27.9 pg (27.0-31.0); MEAN CORPUSCULAR HGB CONC 32.1 g/dl (33.0-37.0); MEAN PLATELET VOLUME 9.4 fl (9.6-12.3); MONO # 0.5 10*3/uL (0.1-1.0); MONO % 6.8 % (3.0-9.0); NEUT # 4.9 10*3/uL (2.3-7.9); NEUT % 66.1 % (47.0-73.0); PLATELET COUNT AUTOMATED 172 10*3/uL (130-400); RED BLOOD COUNT 4.69 10*6/uL (4.10-5.10); RED CELL DISTRI WIDTH 12.3 % (0-14.5); WHITE BLOOD COUNT 7.4 10*3/uL (4.8-10.8)
[2018-09-16 08:05] LABS: BUN 19 mg/dl (7-24); CHLORIDE 104 mmol/L (98-107); CREATININE 1.12 mg/dL (0.55-1.02); SODIUM 138 mmol/L (136-145)
[2018-09-16 08:06] LABS: ACT PARTIAL THROMBO TIME 28.8 SECONDS (20.0-32.1)
[2018-09-16 08:08] LABS: TROPONIN I < 0.015 ng/ml (<0.045)
[2018-09-16 08:32] LABS: BILIRUBIN NEGATIVE (NEGATIVE); BLOOD NEGATIVE (NEGATIVE); CLARITY CLEAR (CLEAR); COLOR YELLOW (YELLOW); GLUCOSE NEGATIVE (NEGATIVE); KETONE NEGATIVE (NEGATIVE); LEUKO ESTERASE 1+ (NEGATIVE); NITRITE NEGATIVE (NEGATIVE); UROBILINOGEN 0.2 E.U./dl (0.2-1.0)
[2018-09-16 08:41] LABS: BACTERIA 1+; RBC 0-2 rbc/hpf (0-2)
[2018-09-16 09:10] VITALS: BP 157/73
== END 2018-09-16 09:15 | disposition home or self-care (01) ==
LOC: ED 07:06
PROVIDERS: Emergency Medicine
DX: H81.11 Benign paroxysmal vertigo, right ear (principal); I10 Essential (primary) hypertension; Z91.041 Radiographic dye allergy status; Z88.1 Allergy status to other antibiotic agents; Z88.5 Allergy status to narcotic agent; Z91.018 Allergy to other foods; Z79.899 Other long term (current) drug therapy

== ENCOUNTER 2018-09-28 12:20 | Emergency (ER) | payer MEDICARE, OTHER ==
[~2018-09-28] VITALS: Ht 149.8 cm; Wt 79.4 kg
[2018-09-28 12:20] VITALS: BP 154/60
== END 2018-09-28 20:24 | disposition home or self-care (01) ==
LOC: ED 12:20
DX: S63.502A Unspecified sprain of left wrist, initial encounter (principal); Z91.041 Radiographic dye allergy status; Z88.1 Allergy status to other antibiotic agents; Z88.5 Allergy status to narcotic agent; Z91.018 Allergy to other foods; Z79.899 Other long term (current) drug therapy; X50.0XXA Overexertion from strenuous movement or load, initial encounter; Y93.89 Activity, other specified; Y92.89 Other specified places as the place of occurrence of the external cause; Y99.8 Other external cause status

== ENCOUNTER 2018-10-21 10:36 | Emergency (ER) | payer MEDICARE, OTHER ==
[~2018-10-21] VITALS: Ht 152.4 cm; Wt 77.1 kg
[2018-10-21 10:38] VITALS: BP 141/53
== END 2018-10-21 13:35 | disposition home or self-care (01) ==
LOC: ED 10:36
DX: M25.562 Pain in left knee (principal); M79.605 Pain in left leg; M19.90 Unspecified osteoarthritis, unspecified site; Z88.1 Allergy status to other antibiotic agents; Z88.6 Allergy status to analgesic agent; Z91.018 Allergy to other foods; Z88.4 Allergy status to anesthetic agent; Z79.899 Other long term (current) drug therapy; Z91.041 Radiographic dye allergy status

== ENCOUNTER → 2018-11-02 | Outpatient (CLI) | payer MEDICARE, OTHER ==
[~2018-11-02] MED LIST changes: +SEPTDS PO
== END | disposition home or self-care (01) ==
LOC: CARD 08:47
DX: I35.1 Nonrheumatic aortic (valve) insufficiency (principal)

== ENCOUNTER 2018-11-07 06:18 | Emergency (ER) | payer MEDICARE, OTHER ==
[~2018-11-07] VITALS: Wt 81.2 kg
[~2018-11-07 06:18] MED LIST changes: -SEPTDS PO
[2018-11-07 07:00] LABS: BASO # 0.1 10*3/uL (0.0-0.1); BASO % 0.7 % (0.0-1.0); EOS # 0.5 10*3/uL (0.0-0.4); HEMATOCRIT 41.3 % (37.0-47.0); HEMOGLOBIN 13.3 g/dl (12.0-16.0); LYMPH # 2.1 10*3/uL (1.3-4.4); LYMPH % 26.4 % (27.0-41.0); MEAN CELL VOLUME 88.4 fl (81.0-99.0); MEAN CORPUSCULAR HGB 28.5 pg (27.0-31.0); MEAN CORPUSCULAR HGB CONC 32.2 g/dl (33.0-37.0); MONO # 0.6 10*3/uL (0.1-1.0); MONO % 7.8 % (3.0-9.0); NEUT # 4.7 10*3/uL (2.3-7.9); NEUT % 58.7 % (47.0-73.0); PLATELET COUNT AUTOMATED 168 10*3/uL (130-400); RED BLOOD COUNT 4.67 10*6/uL (4.10-5.10); RED CELL DISTRI WIDTH 12.9 % (0-14.5)
[2018-11-07 07:11] LABS: ACT PARTIAL THROMBO TIME 27.9 SECONDS (20.0-32.1)
[2018-11-07 07:19] LABS: ALBUMIN 3.6 gm/dl (3.1-4.5); ALKALINE PHOSPHATASE 75 U/L (45-117); BUN 18 mg/dl (7-24); CHLORIDE 105 mmol/L (98-107); CREATININE 0.94 mg/dL (0.55-1.02); LIPASE 102 U/L (73-393); POTASSIUM 3.8 mmol/L (3.5-5.1); SGOT/AST 15 IU/L (3-35); SGPT/ALT 19 U/L (12-78); SODIUM 139 mmol/L (136-145); TOTAL PROTEIN 7.5 gm/dL (6.4-8.2)
[2018-11-07 07:20] LABS: TROPONIN I < 0.015 ng/ml (<0.045)
[2018-11-07 08:40] LABS: BILIRUBIN NEGATIVE (NEGATIVE); BLOOD NEGATIVE (NEGATIVE); CLARITY CLEAR (CLEAR); COLOR YELLOW (YELLOW); GLUCOSE NEGATIVE (NEGATIVE); KETONE NEGATIVE (NEGATIVE); LEUKO ESTERASE 1+ (NEGATIVE); NITRITE NEGATIVE (NEGATIVE); UROBILINOGEN 0.2 E.U./dl (0.2-1.0)
[2018-11-07 08:55] LABS: EPITHELIAL CELLS 16-20; RBC 0-2 rbc/hpf (0-2)
[2018-11-07 10:21] VITALS: BP 132/78
[2018-11-07] MEDS ORDERED: SEPTDS PO (11:33)
== END 2018-11-07 11:38 | disposition home or self-care (01) ==
LOC: ED 06:18
PROVIDERS: Family Medicine
DX: I10 Essential (primary) hypertension (principal); N39.0 Urinary tract infection, site not specified; Z79.899 Other long term (current) drug therapy; Z91.041 Radiographic dye allergy status; Z88.1 Allergy status to other antibiotic agents; Z88.5 Allergy status to narcotic agent; Z91.018 Allergy to other foods

== ENCOUNTER 2019-01-18 05:08 | Emergency (ER) | payer MEDICARE, OTHER ==
[~2019-01-18] VITALS: Ht 152.4 cm; Wt 77.1 kg
--- NOTE | ~2019-01-18 | EKG ---
[place], [place] ELECTROCARDIOGRAM REPORT NAME: JESUS FRIEDMAN UNIT #: [id number] ROOM: DOCTOR: EPIPHANY DRAFT REPORT BIRTHDATE: [birth year] [facility] Test Date: 2019-01-18 Test Time: 05:44:41 Pat Name: JESUS FRIEDMAN Department: Room: Gender: F Assembly Associate: : 1935 Requested By: JARROD WOLFE Order Number: [id number] Reading MD: Measurements Intervals [place] Rate: 69 P: 33 SC: 196 QRS: -18 QRSD: 131 T: 99 QT: 431 QTc: 462 Interpretive Statements Sinus rhythm Left bundle branch block Compared to ECG 11/07/2018 07:03:52 Left bundle-branch block now present Myocardial infarct finding no longer present CM:EKGRPT:ELECTROCARDIOGRAM REPORT [id number] JARROD ROWLAND DRAFT REPORT JARROD WOLFE DO
[~2019-01-18 05:08] MED LIST changes: +SEPTDS PO
[2019-01-18] MEDS ORDERED: LISINOPRIL5 MG PO (05:28)
[2019-01-18 05:31] VITALS: BP 130/62
[2019-01-18 06:05] LABS: BASO # 0.1 10*3/uL (0.0-0.1); BASO % 0.8 % (0.0-1.0); EOS # 0.4 10*3/uL (0.0-0.4); HEMATOCRIT 40.7 % (37.0-47.0); HEMOGLOBIN 12.8 g/dl (12.0-16.0); LYMPH # 2.1 10*3/uL (1.3-4.4); LYMPH % 25.8 % (27.0-41.0); MEAN CELL VOLUME 87.5 fl (81.0-99.0); MEAN CORPUSCULAR HGB 27.5 pg (27.0-31.0); MEAN CORPUSCULAR HGB CONC 31.4 g/dl (33.0-37.0); MEAN PLATELET VOLUME 9.2 fl (9.6-12.3); MONO # 0.7 10*3/uL (0.1-1.0); MONO % 8.2 % (3.0-9.0); NEUT # 4.7 10*3/uL (2.3-7.9); NEUT % 59.3 % (47.0-73.0); PLATELET COUNT AUTOMATED 177 10*3/uL (130-400); RED BLOOD COUNT 4.65 10*6/uL (4.10-5.10); RED CELL DISTRI WIDTH 12.5 % (0-14.5)
[2019-01-18 06:15] LABS: ALBUMIN 3.4 gm/dl (3.1-4.5); ALKALINE PHOSPHATASE 77 U/L (45-117); BUN 21 mg/dl (7-24); CHLORIDE 107 mmol/L (98-107); CREATININE 1.07 mg/dL (0.55-1.02); POTASSIUM 3.9 mmol/L (3.5-5.1); SGOT/AST 17 IU/L (3-35); SGPT/ALT 21 U/L (12-78); SODIUM 138 mmol/L (136-145); TOTAL PROTEIN 7.4 gm/dL (6.4-8.2)
[2019-01-18 06:17] LABS: TROPONIN I < 0.015 ng/ml (<0.045)
== END 2019-01-18 06:43 | disposition home or self-care (01) ==
LOC: ED 05:08
PROVIDERS: Emergency Medicine
DX: I10 Essential (primary) hypertension (principal); J45.909 Unspecified asthma, uncomplicated; K21.9 Gastro-esophageal reflux disease without esophagitis; R79.1 Abnormal coagulation profile; Z79.899 Other long term (current) drug therapy; Z88.1 Allergy status to other antibiotic agents; Z91.041 Radiographic dye allergy status; Z88.6 Allergy status to analgesic agent; Z91.018 Allergy to other foods; Z88.4 Allergy status to anesthetic agent

== ENCOUNTER 2019-09-23 21:07 | Emergency (ER) | payer MEDICARE, OTHER ==
[~2019-09-23] VITALS: Ht 152.4 cm; Wt 72.6 kg
[~2019-09-23 21:07] MED LIST changes: +LISINOPRIL5 MG PO
[2019-09-23 21:20] VITALS: BP 154/62
[2019-09-23] MEDS ORDERED: DIPROSONE 0.05%15 GM T (21:35)
== END 2019-09-23 22:01 | disposition home or self-care (01) ==
LOC: ED 21:07
DX: R21 Rash and other nonspecific skin eruption (principal); L29.9 Pruritus, unspecified; I10 Essential (primary) hypertension; J45.909 Unspecified asthma, uncomplicated; K21.9 Gastro-esophageal reflux disease without esophagitis; Z91.041 Radiographic dye allergy status; Z88.1 Allergy status to other antibiotic agents; Z91.018 Allergy to other foods; Z88.4 Allergy status to anesthetic agent; Z79.899 Other long term (current) drug therapy

== ENCOUNTER 2019-10-10 20:20 | Emergency (ER) | payer MEDICARE ==
[~2019-10-10] VITALS: Ht 152.4 cm; Wt 74.8 kg
[~2019-10-10 20:20] MED LIST changes: +DIPROSONE 0.05%15 GM T
[2019-10-10 21:37] LABS: BASO % 0.4 % (0.0-1.0); EOS # 0.3 10*3/uL (0.0-0.4); EOS % 2.5 % (1.0-4.0); HEMATOCRIT 44.8 % (37.0-47.0); LYMPH # 2.1 10*3/uL (1.3-4.4); LYMPH % 21.6 % (27.0-41.0); MEAN CELL VOLUME 84.2 fl (81.0-99.0); MEAN CORPUSCULAR HGB 26.9 pg (27.0-31.0); MEAN CORPUSCULAR HGB CONC 31.9 g/dl (33.0-37.0); MEAN PLATELET VOLUME 9.5 fl (9.6-12.3); MONO # 0.9 10*3/uL (0.1-1.0); MONO % 8.9 % (3.0-9.0); NEUT # 6.6 10*3/uL (2.3-7.9); NEUT % 66.4 % (47.0-73.0); PLATELET COUNT AUTOMATED 187 10*3/uL (130-400); RED BLOOD COUNT 5.32 10*6/uL (4.10-5.10); RED CELL DISTRI WIDTH 13.1 % (0-14.5); WHITE BLOOD COUNT 9.9 10*3/uL (4.8-10.8)
[2019-10-10 21:39] LABS: BILIRUBIN NEGATIVE (NEGATIVE); BLOOD NEGATIVE (NEGATIVE); CLARITY CLEAR (CLEAR); COLOR YELLOW (YELLOW); GLUCOSE NEGATIVE (NEGATIVE); KETONE NEGATIVE (NEGATIVE); LEUKO ESTERASE 1+ (NEGATIVE); NITRITE NEGATIVE (NEGATIVE); UROBILINOGEN 0.2 E.U./dl (0.2-1.0)
[2019-10-10 21:45] LABS: WBC 16-20 wbc/hpf (0-5)
[2019-10-10 21:47] LABS: ACT PARTIAL THROMBO TIME 31.2 SECONDS (20.0-32.1)
[2019-10-10 21:57] LABS: ALBUMIN 3.8 gm/dl (3.1-4.5); ALKALINE PHOSPHATASE 84 U/L (45-117); BUN 21 mg/dl (7-24); CHLORIDE 102 mmol/L (98-107); CREATININE 1.12 mg/dL (0.55-1.02); LIPASE 96 U/L (73-393); POTASSIUM 3.7 mmol/L (3.5-5.1); SGOT/AST 14 IU/L (3-35); SGPT/ALT 21 U/L (12-78); SODIUM 136 mmol/L (136-145); TOTAL PROTEIN 8.3 gm/dL (6.4-8.2)
[2019-10-10 21:58] LABS: TROPONIN I < 0.015 ng/ml (<0.045)
[2019-10-10] MEDS ORDERED: MACROBID100 M1 PO (22:32)
[2019-10-10 22:45] VITALS: BP 150/72
== END 2019-10-10 23:17 | disposition home or self-care (01) ==
LOC: ED 20:20
PROVIDERS: Physician Assistant
DX: I10 Essential (primary) hypertension (principal); N39.0 Urinary tract infection, site not specified; J45.909 Unspecified asthma, uncomplicated; K21.9 Gastro-esophageal reflux disease without esophagitis; F41.9 Anxiety disorder, unspecified; Z91.041 Radiographic dye allergy status; Z88.8 Allergy status to other drugs, medicaments and biological substances; Z88.5 Allergy status to narcotic agent; Z79.899 Other long term (current) drug therapy

== ENCOUNTER 2019-11-09 23:06 | Emergency (ER) | payer MEDICARE ==
[~2019-11-09] VITALS: Ht 147.3 cm; Wt 72.6 kg
[2019-11-09 23:42] VITALS: BP 173/51
[2019-11-10 00:31] LABS: ALBUMIN 3.6 gm/dl (3.1-4.5); ALKALINE PHOSPHATASE 80 U/L (45-117); BUN 31 mg/dl (7-24); CHLORIDE 105 mmol/L (98-107); CREATININE 1.16 mg/dL (0.55-1.02); POTASSIUM 3.8 mmol/L (3.5-5.1); SGOT/AST 14 IU/L (3-35); SGPT/ALT 19 U/L (12-78); SODIUM 134 mmol/L (136-145); TOTAL PROTEIN 7.8 gm/dL (6.4-8.2)
[2019-11-10 00:37] LABS: TROPONIN I < 0.015 ng/ml (<0.045)
== END 2019-11-10 01:20 | disposition home or self-care (01) ==
LOC: ED 23:06
PROVIDERS: Student in an Organized Health Care Education/Training Program
DX: R00.2 Palpitations (principal); I49.1 Atrial premature depolarization; Z88.8 Allergy status to other drugs, medicaments and biological substances; Z79.899 Other long term (current) drug therapy

== ENCOUNTER → 2020-03-26 | Outpatient (CLI) | payer MEDICARE ==
[~2020-03-26] MED LIST changes: +ATIVAN0.5 MG PO; +METOPROLOL SUCC25 M2 PO
== END | disposition home or self-care (01) ==
LOC: MAMMO 13:52
PROVIDERS: ATTEND Family Medicine
DX: R92.1 Mammographic calcification found on diagnostic imaging of breast (principal)

== ENCOUNTER → 2020-04-10 | Outpatient (CLI) | payer MEDICARE ==
[2020-04-10 13:23] LABS: HEMATOCRIT 44.6 % (37.0-47.0); MEAN CELL VOLUME 85.9 fl (81.0-99.0); MEAN CORPUSCULAR HGB 26.8 pg (27.0-31.0); MEAN CORPUSCULAR HGB CONC 31.2 g/dl (33.0-37.0); MEAN PLATELET VOLUME 9.7 fl (9.6-12.3); RED BLOOD COUNT 5.19 10*6/uL (4.10-5.10); RED CELL DISTRI WIDTH 13.1 % (0-14.5); WHITE BLOOD COUNT 8.9 10*3/uL (4.8-10.8)
[2020-04-10 14:00] LABS: ALBUMIN 3.8 gm/dl (3.1-4.5); CREATININE 1.16 mg/dL (0.55-1.02); POTASSIUM 4.3 mmol/L (3.5-5.1)
== END | disposition home or self-care (01) ==
LOC: LAB 12:59
PROVIDERS: ATTEND Nurse Practitioner Family
DX: E55.9 Vitamin D deficiency, unspecified (principal); R53.83 Other fatigue; R73.9 Hyperglycemia, unspecified; Z79.899 Other long term (current) drug therapy

== ENCOUNTER → 2020-07-03 | Outpatient (CLI) | payer MEDICARE ==
[2020-07-03 11:25] LABS: HEMATOCRIT 43.6 % (37.0-47.0); MEAN CORPUSCULAR HGB 26.8 pg (27.0-31.0); MEAN CORPUSCULAR HGB CONC 31.2 g/dl (33.0-37.0); MEAN PLATELET VOLUME 9.2 fl (9.6-12.3); RED BLOOD COUNT 5.07 10*6/uL (4.10-5.10); RED CELL DISTRI WIDTH 12.8 % (0-14.5); WHITE BLOOD COUNT 8.3 10*3/uL (4.8-10.8)
[2020-07-03 11:39] LABS: ALBUMIN 3.8 gm/dl (3.1-4.5); CREATININE 1.2 mg/dL (0.55-1.02); TOTAL PROTEIN 7.8 gm/dL (6.4-8.2)
[2020-07-03 11:47] LABS: VITAMIN D, 25-HYDROXY 99.2 ng/mL (30-100)
== END | disposition home or self-care (01) ==
LOC: LAB 10:52
PROVIDERS: ATTEND Family Medicine
DX: I10 Essential (primary) hypertension (principal); E78.00 Pure hypercholesterolemia, unspecified; E55.9 Vitamin D deficiency, unspecified; R53.83 Other fatigue

== ENCOUNTER → 2020-09-13 | Outpatient (CLI) | payer MEDICARE | END | disposition home or self-care (01) | LOC: RAD 14:17 | PROVIDERS: ATTEND Family Medicine | DX: R05 Cough (principal); R50.9 Fever, unspecified ==

== ENCOUNTER → 2020-10-02 | Outpatient (CLI) | payer MEDICARE ==
[2020-10-02 08:18] LABS: MEAN CELL VOLUME 85.7 fl (81.0-99.0); MEAN CORPUSCULAR HGB 26.5 pg (27.0-31.0); MEAN CORPUSCULAR HGB CONC 30.9 g/dl (33.0-37.0); MEAN PLATELET VOLUME 9.6 fl (9.6-12.3); RED BLOOD COUNT 5.02 10*6/uL (4.10-5.10); RED CELL DISTRI WIDTH 12.7 % (0-14.5); WHITE BLOOD COUNT 7.7 10*3/uL (4.8-10.8)
[2020-10-02 08:38] LABS: ALBUMIN 3.4 gm/dl (3.1-4.5); BUN 19 mg/dl (7-24); CHLORIDE 103 mmol/L (98-107); CHOLESTEROL 203 mg/dL (<200); POTASSIUM 4.4 mmol/L (3.5-5.1); SGOT/AST 13 IU/L (3-35); SGPT/ALT 16 U/L (12-78); SODIUM 136 mmol/L (136-145); TOTAL PROTEIN 7.6 gm/dL (6.4-8.2); TRIGLYCERIDES 182 mg/dl (<150)
[2020-10-02 08:39] LABS: ALKALINE PHOSPHATASE 60 U/L (45-117); LDL CHOLESTEROL 122 mg/dL (9-159)
== END | disposition home or self-care (01) ==
LOC: LAB 08:00
PROVIDERS: ATTEND Family Medicine
DX: I10 Essential (primary) hypertension (principal); E78.00 Pure hypercholesterolemia, unspecified; K21.9 Gastro-esophageal reflux disease without esophagitis

== ENCOUNTER → 2020-11-21 | Outpatient (CLI) | payer MEDICARE | END | disposition home or self-care (01) | LOC: RAD 08:38 | PROVIDERS: ATTEND Family Medicine | DX: M54.5 Low back pain (principal) ==

== ENCOUNTER 2021-03-25 05:41 | Inpatient (IN) | payer MEDICARE ==
[~2021-03-25] VITALS: Ht 147.3 cm; Wt 2.1 kg
[~2021-03-25 05:41] MED LIST changes: -FLOVENT 110 M110 MCG INH; +FLOVENT HFA12 GM INH
[2021-03-25 06:06] VITALS: BP 127/61
[2021-03-25 06:13] LABS: BASO % 0.3 % (0.0-1.0); EOS # 0.2 10*3/uL (0.0-0.4); EOS % 1.7 % (1.0-4.0); HEMATOCRIT 38.3 % (37.0-47.0); LYMPH % 20.1 % (27.0-41.0); MEAN CELL VOLUME 80.6 fl (81.0-99.0); MEAN CORPUSCULAR HGB 27.4 pg (27.0-31.0); MEAN CORPUSCULAR HGB CONC 33.9 g/dl (33.0-37.0); MEAN PLATELET VOLUME 9.5 fl (9.6-12.3); MONO # 0.9 10*3/uL (0.1-1.0); MONO % 8.7 % (3.0-9.0); NEUT # 6.9 10*3/uL (2.3-7.9); NEUT % 68.9 % (47.0-73.0); PLATELET COUNT AUTOMATED 172 10*3/uL (130-400); RED BLOOD COUNT 4.75 10*6/uL (4.10-5.10); RED CELL DISTRI WIDTH 12.3 % (0-14.5); WHITE BLOOD COUNT 10.1 10*3/uL (4.8-10.8)
[2021-03-25 06:35] LABS: ALBUMIN 3.6 gm/dl (3.1-4.5); CREATININE 1.8 mg/dL (0.55-1.02); POTASSIUM 3.6 mmol/L (3.5-5.1); TOTAL PROTEIN 7.8 gm/dL (6.4-8.2)
[2021-03-25 10:49] VITALS: BP 122/52
[2021-03-25] MEDS ORDERED: COZAAR50 M1 PO (11:24)
[2021-03-25] MEDS ORDERED: TOPROL XL50 M1 PO (11:27)
[2021-03-25] MEDS ORDERED: COZAAR100 MG PO (12:51)
[2021-03-25] MEDS ORDERED: LOPRESSOR25 MG PO (12:52)
[2021-03-25] MEDS ORDERED: FLOVENT HFA12 G1 INH ×2 (13:55→22:06)
[2021-03-25] MEDS ORDERED: LOPRESSOR50 M1 PO (13:56)
[2021-03-25 14:00] VITALS: BP 127/48
[2021-03-25] MEDS ORDERED: VITAMIN D PO (17:56)
[2021-03-25] MEDS ORDERED: LOSARTAN POTAS100 M1 PO (22:04)
[2021-03-26 00:09] VITALS: BP 123/54
[2021-03-26 06:48] LABS: BASO % 0.3 % (0.0-1.0); EOS # 0.2 10*3/uL (0.0-0.4); EOS % 1.9 % (1.0-4.0); HEMATOCRIT 36.5 % (37.0-47.0); LYMPH # 2.1 10*3/uL (1.3-4.4); LYMPH % 24.1 % (27.0-41.0); MEAN CELL VOLUME 81.1 fl (81.0-99.0); MEAN CORPUSCULAR HGB 26.4 pg (27.0-31.0); MEAN CORPUSCULAR HGB CONC 32.6 g/dl (33.0-37.0); MONO # 0.9 10*3/uL (0.1-1.0); MONO % 10.3 % (3.0-9.0); NEUT # 5.5 10*3/uL (2.3-7.9); NEUT % 62.5 % (47.0-73.0); PLATELET COUNT AUTOMATED 197 10*3/uL (130-400); RED CELL DISTRI WIDTH 12.2 % (0-14.5); WHITE BLOOD COUNT 8.7 10*3/uL (4.8-10.8)
[2021-03-26 06:50] LABS: CREATININE 1.56 mg/dL (0.55-1.02); POTASSIUM 3.8 mmol/L (3.5-5.1)
[2021-03-26 08:00] VITALS: BP 122/48
[2021-03-26 12:00] VITALS: BP 1116/42; BP 116/42
[2021-03-26 16:00] VITALS: BP 128/51
[2021-03-26 20:00] VITALS: BP 138/48
[2021-03-27] VITALS (7 sets, daily range): BP systolic 110–142; BP diastolic 51–78
[2021-03-27 06:36] LABS: BASO % 0.6 % (0.0-1.0); EOS # 0.2 10*3/uL (0.0-0.4); EOS % 3.4 % (1.0-4.0); LYMPH # 1.6 10*3/uL (1.3-4.4); LYMPH % 22.3 % (27.0-41.0); MEAN CELL VOLUME 82.9 fl (81.0-99.0); MEAN CORPUSCULAR HGB 26.6 pg (27.0-31.0); MEAN CORPUSCULAR HGB CONC 32.1 g/dl (33.0-37.0); MEAN PLATELET VOLUME 9.8 fl (9.6-12.3); MONO # 0.7 10*3/uL (0.1-1.0); MONO % 10.3 % (3.0-9.0); NEUT # 4.4 10*3/uL (2.3-7.9); PLATELET COUNT AUTOMATED 159 10*3/uL (130-400); RED CELL DISTRI WIDTH 12.5 % (0-14.5)
[2021-03-27 06:59] LABS: CREATININE 1.35 mg/dL (0.55-1.02); POTASSIUM 3.5 mmol/L (3.5-5.1)
[2021-03-28] VITALS: BP 141/79
[2021-03-28 06:47] LABS: BASO % 0.4 % (0.0-1.0); EOS # 0.2 10*3/uL (0.0-0.4); EOS % 1.5 % (1.0-4.0); HEMATOCRIT 34.5 % (37.0-47.0); LYMPH # 1.5 10*3/uL (1.3-4.4); LYMPH % 14.3 % (27.0-41.0); MEAN CELL VOLUME 81.2 fl (81.0-99.0); MEAN CORPUSCULAR HGB 26.8 pg (27.0-31.0); MEAN PLATELET VOLUME 9.6 fl (9.6-12.3); MONO # 0.7 10*3/uL (0.1-1.0); MONO % 6.6 % (3.0-9.0); NEUT # 8.2 10*3/uL (2.3-7.9); NEUT % 76.6 % (47.0-73.0); PLATELET COUNT AUTOMATED 169 10*3/uL (130-400); RED BLOOD COUNT 4.25 10*6/uL (4.10-5.10); RED CELL DISTRI WIDTH 12.5 % (0-14.5); WHITE BLOOD COUNT 10.6 10*3/uL (4.8-10.8)
[2021-03-28 07:04] LABS: CREATININE 1.34 mg/dL (0.55-1.02); POTASSIUM 3.4 mmol/L (3.5-5.1)
[2021-03-28 08:00] VITALS: BP 136/63
== END 2021-03-28 14:30 | disposition home health service (06) | DRG 391 ==
LOC: ED 05:41 → 5E 11:16 → EDHOLD 11:16 → 5E 11:54
PROVIDERS: Internal Medicine; ADMIT Internal Medicine; ATTEND Internal Medicine
PROC: 0DB98ZX Excision of Duodenum, Via Natural or Artificial Opening Endoscopic, Diagnostic (ICD-10-PCS; principal; 2021-03-27)
PROC: 0DB68ZX Excision of Stomach, Via Natural or Artificial Opening Endoscopic, Diagnostic (ICD-10-PCS; 2021-03-27)
PROC: 0DJD8ZZ Inspection of Lower Intestinal Tract, Via Natural or Artificial Opening Endoscopic (ICD-10-PCS; 2021-03-27)
DX: K29.70 Gastritis, unspecified, without bleeding (principal); N17.0 Acute kidney failure with tubular necrosis; K21.00 Gastro-esophageal reflux disease with esophagitis, without bleeding; E86.0 Dehydration; I10 Essential (primary) hypertension; R26.9 Unspecified abnormalities of gait and mobility; R62.7 Adult failure to thrive; E87.6 Hypokalemia; K29.80 Duodenitis without bleeding; I88.0 Nonspecific mesenteric lymphadenitis; Z88.5 Allergy status to narcotic agent; Z88.1 Allergy status to other antibiotic agents; Z91.041 Radiographic dye allergy status

== ENCOUNTER → 2021-06-12 | Outpatient (CLI) | payer MEDICARE ==
[~2021-06-12] MED LIST changes: +ASPIRIN ADULT L81 M1 PO; +CLOPIDOGREL75 MG PO; +COZAAR100 MG PO; +COZAAR50 M1 PO; +FLOVENT HFA12 G1 INH; +LASIX20 MG PO; +LISINOPRIL2.5 MG PO; +LOPRESSOR25 MG PO; +LOPRESSOR50 M1 PO; +LOSARTAN POTAS100 M1 PO; +POTASSIUM CHLO10 ME5 PO; +SIMVASTATIN10 MG PO; +TOPROL XL50 M1 PO; +TRIAMTERENE-HC1 EACH PO; +VITAMIN D PO
[2021-06-12 15:11] LABS: BASO % 0.5 % (0.0-1.0); EOS # 0.3 10*3/uL (0.0-0.4); EOS % 4.2 % (1.0-4.0); HEMATOCRIT 39.1 % (37.0-47.0); LYMPH % 26.8 % (27.0-41.0); MEAN CELL VOLUME 85.9 fl (81.0-99.0); MEAN CORPUSCULAR HGB 26.8 pg (27.0-31.0); MEAN CORPUSCULAR HGB CONC 31.2 g/dl (33.0-37.0); MEAN PLATELET VOLUME 9.2 fl (9.6-12.3); MONO # 0.7 10*3/uL (0.1-1.0); MONO % 9.5 % (3.0-9.0); NEUT # 4.3 10*3/uL (2.3-7.9); NEUT % 58.7 % (47.0-73.0); PLATELET COUNT AUTOMATED 174 10*3/uL (130-400); RED BLOOD COUNT 4.55 10*6/uL (4.10-5.10); RED CELL DISTRI WIDTH 13.1 % (0-14.5); WHITE BLOOD COUNT 7.4 10*3/uL (4.8-10.8)
[2021-06-12 15:26] LABS: CREATININE 1.29 mg/dL (0.55-1.02)
== END | disposition home or self-care (01) ==
LOC: LAB 14:28
PROVIDERS: ATTEND Internal Medicine
DX: R23.3 Spontaneous ecchymoses (principal)

== ENCOUNTER 2021-07-11 06:48 | Emergency (ER) | payer MEDICARE ==
[~2021-07-11] VITALS: Ht 147.3 cm; Wt 68.0 kg
[2021-07-11 07:10] LABS: BASO % 0.6 % (0.0-1.0); EOS # 0.3 10*3/uL (0.0-0.4); EOS % 4.8 % (1.0-4.0); HEMATOCRIT 41.2 % (37.0-47.0); LYMPH # 1.7 10*3/uL (1.3-4.4); LYMPH % 23.5 % (27.0-41.0); MEAN CELL VOLUME 83.6 fl (81.0-99.0); MEAN CORPUSCULAR HGB 26.8 pg (27.0-31.0); MEAN PLATELET VOLUME 9.3 fl (9.6-12.3); MONO # 0.5 10*3/uL (0.1-1.0); MONO % 7.5 % (3.0-9.0); NEUT # 4.5 10*3/uL (2.3-7.9); NEUT % 63.5 % (47.0-73.0); PLATELET COUNT AUTOMATED 156 10*3/uL (130-400); RED BLOOD COUNT 4.93 10*6/uL (4.10-5.10)
[2021-07-11 07:22] LABS: ACT PARTIAL THROMBO TIME 30.8 SECONDS (20.0-32.1)
[2021-07-11 07:36] LABS: ALKALINE PHOSPHATASE 61 U/L (45-117); BUN 23 mg/dl (7-24); CHLORIDE 107 mmol/L (98-107); CREATININE 1.04 mg/dL (0.55-1.02); POTASSIUM 3.8 mmol/L (3.5-5.1); SGOT/AST 13 IU/L (3-35); SGPT/ALT 16 U/L (12-78); SODIUM 140 mmol/L (136-145); TOTAL PROTEIN 7.7 gm/dL (6.4-8.2)
[2021-07-11 10:09] VITALS: BP 160/70
== END 2021-07-11 10:09 | disposition home or self-care (01) ==
LOC: ED 06:48
PROVIDERS: Emergency Medicine
DX: I10 Essential (primary) hypertension (principal); Z79.899 Other long term (current) drug therapy; Z90.710 Acquired absence of both cervix and uterus; Z91.041 Radiographic dye allergy status; Z88.1 Allergy status to other antibiotic agents; Z88.4 Allergy status to anesthetic agent

== ENCOUNTER 2021-07-18 20:02 | Emergency (ER) | payer MEDICARE ==
[~2021-07-18] VITALS: Wt 77.1 kg
[2021-07-18 20:40] LABS: BASO % 0.5 % (0.0-1.0); EOS # 0.3 10*3/uL (0.0-0.4); EOS % 3.8 % (1.0-4.0); HEMATOCRIT 42.1 % (37.0-47.0); LYMPH # 2.5 10*3/uL (1.3-4.4); LYMPH % 29.2 % (27.0-41.0); MEAN CORPUSCULAR HGB 26.2 pg (27.0-31.0); MEAN CORPUSCULAR HGB CONC 31.6 g/dl (33.0-37.0); MONO # 0.8 10*3/uL (0.1-1.0); NEUT % 57.3 % (47.0-73.0); PLATELET COUNT AUTOMATED 187 10*3/uL (130-400); RED BLOOD COUNT 5.07 10*6/uL (4.10-5.10); RED CELL DISTRI WIDTH 12.7 % (0-14.5); WHITE BLOOD COUNT 8.7 10*3/uL (4.8-10.8)
[2021-07-18 20:57] VITALS: BP 142/58
[2021-07-18 20:58] LABS: CREATININE 1.13 mg/dL (0.55-1.02); TOTAL PROTEIN 7.7 gm/dL (6.4-8.2)
== END 2021-07-18 23:25 | disposition home or self-care (01) ==
LOC: ED 20:02
PROVIDERS: Nurse Practitioner Family
DX: R00.2 Palpitations (principal); I11.0 Hypertensive heart disease with heart failure; Z88.1 Allergy status to other antibiotic agents; Z91.041 Radiographic dye allergy status; Z88.8 Allergy status to other drugs, medicaments and biological substances; Z79.899 Other long term (current) drug therapy; Z90.710 Acquired absence of both cervix and uterus

== ENCOUNTER → 2021-09-23 | Outpatient (CLI) | payer MEDICARE ==
[2021-09-23 09:52] LABS: BASO # 0.1 10*3/uL (0.0-0.1); BASO % 0.7 % (0.0-1.0); EOS # 0.3 10*3/uL (0.0-0.4); EOS % 4.8 % (1.0-4.0); HEMATOCRIT 42.6 % (37.0-47.0); LYMPH # 1.4 10*3/uL (1.3-4.4); LYMPH % 21.5 % (27.0-41.0); MEAN CELL VOLUME 83.9 fl (81.0-99.0); MEAN CORPUSCULAR HGB 26.2 pg (27.0-31.0); MEAN CORPUSCULAR HGB CONC 31.2 g/dl (33.0-37.0); MEAN PLATELET VOLUME 9.1 fl (9.6-12.3); MONO # 0.6 10*3/uL (0.1-1.0); NEUT # 4.3 10*3/uL (2.3-7.9); NEUT % 63.7 % (47.0-73.0); PLATELET COUNT AUTOMATED 171 10*3/uL (130-400); RED BLOOD COUNT 5.08 10*6/uL (4.10-5.10); RED CELL DISTRI WIDTH 13.1 % (0-14.5); WHITE BLOOD COUNT 6.7 10*3/uL (4.8-10.8)
[2021-09-23 10:25] LABS: ALKALINE PHOSPHATASE 66 U/L (45-117); BUN 32 mg/dl (7-24); CHLORIDE 107 mmol/L (98-107); CHOLESTEROL 172 mg/dL (<200); CREATININE 1.04 mg/dL (0.55-1.02); FREE T4 1.04 ng/dl (0.76-1.46); LDL CHOLESTEROL 86 mg/dL (9-159); POTASSIUM 4.3 mmol/L (3.5-5.1); SGOT/AST 13 IU/L (3-35); SGPT/ALT 14 U/L (12-78); SODIUM 138 mmol/L (136-145); T3 UPTAKE 34 % (31-39); TOTAL PROTEIN 7.6 gm/dL (6.4-8.2); TRIGLYCERIDES 189 mg/dl (<150)
[2021-09-23 10:30] LABS: THYROID STIM HORMONE (HS) 0.977 uIU/ml (0.358-4.75)
== END | disposition home or self-care (01) ==
LOC: LAB 08:59 → RAD 09:00
PROVIDERS: ATTEND Internal Medicine
DX: M85.852 Other specified disorders of bone density and structure, left thigh (principal); Z13.820 Encounter for screening for osteoporosis; Z13.0 Encounter for screening for diseases of the blood and blood-forming organs and certain disorders involving the immune mechanism; Z13.29 Encounter for screening for other suspected endocrine disorder; Z13.6 Encounter for screening for cardiovascular disorders; Z13.89 Encounter for screening for other disorder; I10 Essential (primary) hypertension; Z13.1 Encounter for screening for diabetes mellitus; Z13.21 Encounter for screening for nutritional disorder; Z13.228 Encounter for screening for other metabolic disorders; Z13.9 Encounter for screening, unspecified; E55.9 Vitamin D deficiency, unspecified

== ENCOUNTER 2021-12-29 08:31 | Emergency (ER) | payer MEDICARE ==
[~2021-12-29] VITALS: Ht 147.3 cm; Wt 72.6 kg
[2021-12-29 09:28] LABS: BILIRUBIN Negative (Negative); BLOOD Negative (Negative); CLARITY Clear (Clear); COLOR Yellow (Yellow); GLUCOSE Negative (Negative); KETONE Negative (Negative); LEUKO ESTERASE Trace (Negative); NITRITE Negative (Negative); PH 5.5 (4.5-8.0); UROBILINOGEN 0.2 E.U./dl (0.0-1.0)
[2021-12-29 09:48] LABS: BACTERIA 2+; EPITHELIAL CELLS 16-20
[2021-12-29 12:33] LABS: BASO % 0.4 % (0.0-1.0); EOS # 0.1 10*3/uL (0.0-0.4); EOS % 1.7 % (1.0-4.0); HEMATOCRIT 41.9 % (37.0-47.0); LYMPH # 1.5 10*3/uL (1.3-4.4); LYMPH % 19.1 % (27.0-41.0); MEAN CELL VOLUME 83.1 fl (81.0-99.0); MEAN CORPUSCULAR HGB 26.8 pg (27.0-31.0); MEAN CORPUSCULAR HGB CONC 32.2 g/dl (33.0-37.0); MEAN PLATELET VOLUME 9.3 fl (9.6-12.3); MONO # 0.6 10*3/uL (0.1-1.0); MONO % 7.2 % (3.0-9.0); NEUT # 5.4 10*3/uL (2.3-7.9); NEUT % 71.3 % (47.0-73.0); PLATELET COUNT AUTOMATED 189 10*3/uL (130-400); RED BLOOD COUNT 5.04 10*6/uL (4.10-5.10); RED CELL DISTRI WIDTH 12.9 % (0-14.5); WHITE BLOOD COUNT 7.6 10*3/uL (4.8-10.8)
[2021-12-29 12:52] LABS: CREATININE 1.12 mg/dL (0.55-1.02); POTASSIUM 4.1 mmol/L (3.5-5.1); TOTAL PROTEIN 8.2 gm/dL (6.4-8.2)
[2021-12-29 16:00] VITALS: BP 150/56
[2021-12-29] MEDS ORDERED: DOXYCYCLINE HY100 M3 PO (16:12)
== END 2021-12-29 16:28 | disposition home or self-care (01) ==
LOC: ED 08:31
PROVIDERS: Family Medicine
DX: N39.0 Urinary tract infection, site not specified (principal); I10 Essential (primary) hypertension; Z91.041 Radiographic dye allergy status; Z88.1 Allergy status to other antibiotic agents; Z88.4 Allergy status to anesthetic agent; Z88.8 Allergy status to other drugs, medicaments and biological substances; Z91.018 Allergy to other foods; Z79.899 Other long term (current) drug therapy; Z90.710 Acquired absence of both cervix and uterus

== ENCOUNTER 2022-01-26 01:29 | Emergency (ER) | payer MEDICARE ==
[~2022-01-26] VITALS: Wt 72.6 kg
[~2022-01-26 01:29] MED LIST changes: +DOXYCYCLINE HY100 M3 PO
[2022-01-26 02:12] LABS: BASO % 0.6 % (0.0-1.0); EOS # 0.3 10*3/uL (0.0-0.4); EOS % 4.5 % (1.0-4.0); HEMATOCRIT 40.5 % (37.0-47.0); LYMPH # 1.5 10*3/uL (1.3-4.4); LYMPH % 20.9 % (27.0-41.0); MEAN CELL VOLUME 82.5 fl (81.0-99.0); MEAN CORPUSCULAR HGB 26.3 pg (27.0-31.0); MEAN CORPUSCULAR HGB CONC 31.9 g/dl (33.0-37.0); MEAN PLATELET VOLUME 9.3 fl (9.6-12.3); MONO # 0.7 10*3/uL (0.1-1.0); MONO % 10.2 % (3.0-9.0); NEUT # 4.5 10*3/uL (2.3-7.9); NEUT % 63.5 % (47.0-73.0); PLATELET COUNT AUTOMATED 149 10*3/uL (130-400); RED BLOOD COUNT 4.91 10*6/uL (4.10-5.10); WHITE BLOOD COUNT 7.1 10*3/uL (4.8-10.8)
[2022-01-26 02:27] LABS: ALKALINE PHOSPHATASE 63 U/L (46-116); BUN 21 mg/dl (9-23); CHLORIDE 101 mmol/L (98-107); CREATININE 0.98 mg/dL (0.55-1.02); POTASSIUM 3.8 mmol/L (3.4-5.1); SODIUM 136 mmol/L (136-145)
[2022-01-26 02:28] VITALS: BP 111/50
[2022-01-26 02:28] LABS: TOTAL PROTEIN 6.9 gm/dL (6.0-8.0)
[2022-01-26 02:30] LABS: SGPT/ALT < 7 U/L (10-49); THYROID STIM HORMONE (HS) 2.672 uIU/ml (0.550-4.780)
== END 2022-01-26 03:28 | disposition home or self-care (01) ==
LOC: ED 01:29
PROVIDERS: Emergency Medicine
DX: I48.20 Chronic atrial fibrillation, unspecified (principal); Z91.041 Radiographic dye allergy status; Z88.1 Allergy status to other antibiotic agents; Z88.4 Allergy status to anesthetic agent; Z88.8 Allergy status to other drugs, medicaments and biological substances; Z91.018 Allergy to other foods; Z79.899 Other long term (current) drug therapy; Z90.710 Acquired absence of both cervix and uterus

== ENCOUNTER → 2022-02-09 | Outpatient (CLI) | payer MEDICARE | END | disposition home or self-care (01) | LOC: COVID19 12:00 | PROVIDERS: ATTEND Internal Medicine | DX: Z20.822 Contact with and (suspected) exposure to COVID-19 (principal) ==

== ENCOUNTER → 2022-02-24 | Outpatient (CLI) | payer MEDICARE ==
[2022-02-24 12:20] LABS: BASO # 0.1 10*3/uL (0.0-0.1); BASO % 0.7 % (0.0-1.0); EOS # 0.2 10*3/uL (0.0-0.4); EOS % 2.9 % (1.0-4.0); LYMPH # 1.8 10*3/uL (1.3-4.4); LYMPH % 21.3 % (27.0-41.0); MEAN CELL VOLUME 81.6 fl (81.0-99.0); MEAN CORPUSCULAR HGB 25.4 pg (27.0-31.0); MEAN CORPUSCULAR HGB CONC 31.1 g/dl (33.0-37.0); MEAN PLATELET VOLUME 9.1 fl (9.6-12.3); MONO # 0.8 10*3/uL (0.1-1.0); MONO % 9.1 % (3.0-9.0); NEUT # 5.5 10*3/uL (2.3-7.9); NEUT % 65.8 % (47.0-73.0); PLATELET COUNT AUTOMATED 200 10*3/uL (130-400); RED BLOOD COUNT 5.39 10*6/uL (4.10-5.10); WHITE BLOOD COUNT 8.3 10*3/uL (4.8-10.8)
[2022-02-24 12:48] LABS: FREE T4 1.2 ng/dl (0.89-1.76); POTASSIUM 4.4 mmol/L (3.4-5.1); THYROID STIM HORMONE (HS) 1.077 uIU/ml (0.550-4.780); TOTAL PROTEIN 7.7 gm/dL (6.0-8.0)
[2022-02-24 13:08] LABS: VITAMIN D, 25-HYDROXY 106.6 ng/mL (30-100)
== END | disposition home or self-care (01) ==
LOC: LAB 11:49
PROVIDERS: ATTEND Internal Medicine
DX: E55.9 Vitamin D deficiency, unspecified (principal); E03.9 Hypothyroidism, unspecified; D51.9 Vitamin B12 deficiency anemia, unspecified; D52.9 Folate deficiency anemia, unspecified; Z13.0 Encounter for screening for diseases of the blood and blood-forming organs and certain disorders involving the immune mechanism; Z13.1 Encounter for screening for diabetes mellitus; Z13.21 Encounter for screening for nutritional disorder; Z13.220 Encounter for screening for lipoid disorders; Z13.228 Encounter for screening for other metabolic disorders; Z13.89 Encounter for screening for other disorder; R79.89 Other specified abnormal findings of blood chemistry; R53.81 Other malaise

== ENCOUNTER → 2022-03-12 | Outpatient (CLI) | payer MEDICARE | END | disposition home or self-care (01) | LOC: CARD 03:06 | PROVIDERS: ATTEND Internal Medicine Cardiovascular Disease | DX: I08.0 Rheumatic disorders of both mitral and aortic valves (principal) ==

== ENCOUNTER 2022-05-18 09:28 | Emergency (ER) | payer MEDICARE ==
[~2022-05-18] VITALS: Ht 149.8 cm; Wt 76.7 kg
[2022-05-18 09:42] VITALS: BP 96/42
[2022-05-18 10:48] LABS: BASO % 0.5 % (0.0-1.0); EOS % 0.7 % (1.0-4.0); HEMATOCRIT 41.3 % (37.0-47.0); LYMPH # 0.5 10*3/uL (1.3-4.4); LYMPH % 12.4 % (27.0-41.0); MEAN CELL VOLUME 79.6 fl (81.0-99.0); MEAN CORPUSCULAR HGB 25.2 pg (27.0-31.0); MEAN CORPUSCULAR HGB CONC 31.7 g/dl (33.0-37.0); MEAN PLATELET VOLUME 9.3 fl (9.6-12.3); MONO # 0.6 10*3/uL (0.1-1.0); MONO % 14.3 % (3.0-9.0); NEUT # 3.1 10*3/uL (2.3-7.9); NEUT % 71.9 % (47.0-73.0); PLATELET COUNT AUTOMATED 133 10*3/uL (130-400); RED BLOOD COUNT 5.19 10*6/uL (4.10-5.10); RED CELL DISTRI WIDTH 13.9 % (0-14.5); WHITE BLOOD COUNT 4.3 10*3/uL (4.8-10.8)
[2022-05-18 10:59] LABS: ACT PARTIAL THROMBO TIME 31.7 SECONDS (20.0-32.1); INTERNATIONAL NORM RATIO 1.1 (2.0-3.5)
[2022-05-18 11:05] LABS: POTASSIUM 3.8 mmol/L (3.4-5.1); TOTAL PROTEIN 7.3 gm/dL (6.0-8.0)
[2022-05-18] MEDS ORDERED: Ondansetron4 MG PO (12:04)
== END 2022-05-18 13:30 | disposition home or self-care (01) ==
LOC: ED 09:28
PROVIDERS: Internal Medicine
DX: R11.2 Nausea with vomiting, unspecified (principal); R53.1 Weakness; R19.7 Diarrhea, unspecified; J45.909 Unspecified asthma, uncomplicated; I10 Essential (primary) hypertension; K21.9 Gastro-esophageal reflux disease without esophagitis; F41.9 Anxiety disorder, unspecified; I48.91 Unspecified atrial fibrillation; Z91.041 Radiographic dye allergy status; Z88.1 Allergy status to other antibiotic agents; Z88.5 Allergy status to narcotic agent; Z91.018 Allergy to other foods; Z90.710 Acquired absence of both cervix and uterus; Z98.890 Other specified postprocedural states

== ENCOUNTER → 2022-05-26 | Outpatient (CLI) | payer MEDICARE ==
[~2022-05-26] MED LIST changes: +Ondansetron4 MG PO
== END | disposition home or self-care (01) ==
LOC: US 01:09
PROVIDERS: ATTEND Internal Medicine
DX: N28.1 Cyst of kidney, acquired (principal); N19 Unspecified kidney failure

== ENCOUNTER → 2022-10-05 | Outpatient (CLI) | payer MEDICARE ==
[2022-10-05 14:04] LABS: BUN 17 mg/dl (9-23); CHLORIDE 103 mmol/L (98-107); POTASSIUM 3.9 mmol/L (3.4-5.1)
== END | disposition home or self-care (01) ==
LOC: LAB 13:24
PROVIDERS: ATTEND Internal Medicine
DX: Z13.0 Encounter for screening for diseases of the blood and blood-forming organs and certain disorders involving the immune mechanism (principal); Z13.21 Encounter for screening for nutritional disorder; Z13.220 Encounter for screening for lipoid disorders; Z13.228 Encounter for screening for other metabolic disorders; Z13.6 Encounter for screening for cardiovascular disorders; Z13.89 Encounter for screening for other disorder; Z13.9 Encounter for screening, unspecified; I10 Essential (primary) hypertension; E78.2 Mixed hyperlipidemia; Z79.899 Other long term (current) drug therapy

== ENCOUNTER → 2022-10-09 | Outpatient (CLI) | payer MEDICARE | END | disposition home or self-care (01) | LOC: US 10-08 13:00 | PROVIDERS: ATTEND Internal Medicine | DX: I65.23 Occlusion and stenosis of bilateral carotid arteries (principal); I10 Essential (primary) hypertension; R42 Dizziness and giddiness ==

== ENCOUNTER 2022-12-08 02:12 | Emergency (ER) | payer MEDICARE ==
[~2022-12-08] VITALS: Ht 147.3 cm; Wt 71.7 kg
[2022-12-08] MEDS ORDERED: LISINOPRIL5 MG PO (02:23)
[2022-12-08] MEDS ORDERED: NATURE'S BLEND500 M6 PO (02:31)
[2022-12-08 04:05] VITALS: BP 133/45
== END 2022-12-08 04:21 | disposition home or self-care (01) ==
LOC: ED 02:12
DX: F41.9 Anxiety disorder, unspecified (principal); J45.909 Unspecified asthma, uncomplicated; I10 Essential (primary) hypertension; K21.9 Gastro-esophageal reflux disease without esophagitis; I48.91 Unspecified atrial fibrillation; Z91.041 Radiographic dye allergy status; Z88.1 Allergy status to other antibiotic agents; Z88.5 Allergy status to narcotic agent; Z88.8 Allergy status to other drugs, medicaments and biological substances; Z91.018 Allergy to other foods; Z90.710 Acquired absence of both cervix and uterus; Z98.890 Other specified postprocedural states

== ENCOUNTER → 2023-03-02 | Outpatient (CLI) | payer MEDICARE ==
[~2023-03-02] MED LIST changes: +NATURE'S BLEND500 M6 PO
[2023-03-02 09:11] LABS: BASO # 0.1 10*3/uL (0.0-0.1); BASO % 0.7 % (0.0-1.0); EOS # 0.2 10*3/uL (0.0-0.4); EOS % 2.9 % (1.0-4.0); LYMPH # 1.5 10*3/uL (1.3-4.4); LYMPH % 20.9 % (27.0-41.0); MEAN CELL VOLUME 86.6 fl (81.0-99.0); MEAN CORPUSCULAR HGB 26.9 pg (27.0-31.0); MEAN PLATELET VOLUME 9.6 fl (9.6-12.3); MONO # 0.6 10*3/uL (0.1-1.0); MONO % 8.6 % (3.0-9.0); NEUT # 4.7 10*3/uL (2.3-7.9); NEUT % 66.5 % (47.0-73.0); PLATELET COUNT AUTOMATED 183 10*3/uL (130-400); RED BLOOD COUNT 5.54 10*6/uL (4.10-5.10); RED CELL DISTRI WIDTH 12.9 % (0-14.5); WHITE BLOOD COUNT 7.1 10*3/uL (4.8-10.8)
[2023-03-02 10:03] LABS: ALKALINE PHOSPHATASE 66 U/L (46-116); BUN 20 mg/dl (9-23); CHLORIDE 105 mmol/L (98-107); CHOLESTEROL 146 mg/dL (<200); FREE T4 1.21 ng/dl (0.89-1.76); LDL CHOLESTEROL 72 mg/dL (9-159); POTASSIUM 4.2 mmol/L (3.4-5.1); TOTAL PROTEIN 8.1 gm/dL (6.0-8.0); TRIGLYCERIDES 150 mg/dl (<150); VITAMIN D, 25-HYDROXY 46.3 ng/mL (30-100)
[2023-03-02 10:12] LABS: SGPT/ALT < 7 U/L (5-49)
== END | disposition home or self-care (01) ==
LOC: LAB 08:44
PROVIDERS: ATTEND Internal Medicine
DX: Z13.1 Encounter for screening for diabetes mellitus (principal); Z13.0 Encounter for screening for diseases of the blood and blood-forming organs and certain disorders involving the immune mechanism; Z13.21 Encounter for screening for nutritional disorder; Z13.220 Encounter for screening for lipoid disorders; Z13.228 Encounter for screening for other metabolic disorders; Z13.29 Encounter for screening for other suspected endocrine disorder; Z13.6 Encounter for screening for cardiovascular disorders; Z13.89 Encounter for screening for other disorder; Z13.9 Encounter for screening, unspecified

== ENCOUNTER → 2023-03-31 | Outpatient (CLI) | payer MEDICARE | END | disposition home or self-care (01) | LOC: US 01:37 | PROVIDERS: ATTEND Internal Medicine | DX: M79.605 Pain in left leg (principal); I10 Essential (primary) hypertension; I70.213 Atherosclerosis of native arteries of extremities with intermittent claudication, bilateral legs; Z87.891 Personal history of nicotine dependence ==

== ENCOUNTER 2023-04-27 23:26 | Inpatient (IN) | payer MEDICARE ==
[~2023-04-27] VITALS: Ht 147.3 cm; Wt 93.6 kg
[2023-04-27 23:39] VITALS: BP 211/79
[2023-04-28] VITALS (10 sets, daily range): BP systolic 111–183; BP diastolic 45–90
[2023-04-28 00:18] LABS: BASO % 0.5 % (0.0-1.0); EOS # 0.3 10*3/uL (0.0-0.4); EOS % 3.1 % (1.0-4.0); HEMATOCRIT 43.1 % (37.0-47.0); LYMPH # 1.6 10*3/uL (1.3-4.4); LYMPH % 18.2 % (27.0-41.0); MEAN CELL VOLUME 85.7 fl (81.0-99.0); MEAN CORPUSCULAR HGB CONC 31.6 g/dl (33.0-37.0); MEAN PLATELET VOLUME 9.4 fl (9.6-12.3); MONO # 0.8 10*3/uL (0.1-1.0); MONO % 9.2 % (3.0-9.0); NEUT % 68.8 % (47.0-73.0); PLATELET COUNT AUTOMATED 157 10*3/uL (130-400); RED BLOOD COUNT 5.03 10*6/uL (4.10-5.10); RED CELL DISTRI WIDTH 12.8 % (0-14.5); WHITE BLOOD COUNT 8.7 10*3/uL (4.8-10.8)
[2023-04-28 00:39] LABS: BUN 17 mg/dl (9-23); CHLORIDE 103 mmol/L (98-107); LIPASE 40 U/L (12-53); POTASSIUM 3.8 mmol/L (3.4-5.1)
[2023-04-28] MEDS ORDERED: hydrALAZINE hydrochloride 20 MG/ML VIAL IV ONE (00:55)
[2023-04-28 01:30] LABS: BILIRUBIN Negative (Negative); BLOOD Negative (Negative); CLARITY Clear (Clear); COLOR Yellow (Yellow); GLUCOSE Negative (Negative); KETONE Negative (Negative); LEUKO ESTERASE Negative (Negative); NITRITE Negative (Negative); PH 5.5 (4.5-8.0); SPECIFIC GRAVITY <= 1.005 (1.001-1.030); UROBILINOGEN 0.2 E.U./dl (0.0-1.0)
[2023-04-28] MEDS ORDERED: TOPROL XL25 MG PO (04:23)
[2023-04-28] MEDS ORDERED: OMEPRAZOLE 20 MG CAP PO SCH (08:33)
[2023-04-28] MEDS ORDERED: LISINOPRIL 20 MG TAB PO SCH (10:00)
[2023-04-28] MEDS ORDERED: FUROSEMIDE 20 MG TAB PO SCH (10:00)
[2023-04-28] MEDS ORDERED: amLODIPine besylate 5 MG TAB PO SCH (10:00)
[2023-04-28] MEDS ORDERED: METOPROLOL SUCCINATE XR 100 MG TAB PO SCH (10:00)
[2023-04-28] MEDS ORDERED: Clopidogrel Hydrogen Sulfate 75 MG TAB PO SCH (10:00)
[2023-04-28] MEDS ORDERED: BUDESONIDE 0.5 MG AMP NEB SCH (10:00)
[2023-04-28] MEDS ORDERED: ASPIRIN, CHEWABLE 81 MG TAB PO SCH (10:00)
[2023-04-28] MEDS ORDERED: POTASSIUM CHLORIDE 10 MEQ TAB PO SCH (10:00)
[2023-04-28] MEDS ORDERED: SIMVASTATIN 20 MG TAB PO SCH (22:00)
[2023-04-29] VITALS: BP 124/45
[2023-04-29 08:00] VITALS: BP 125/44
[2023-04-29] MEDS ORDERED: LISINOPRIL20 MG PO (08:57)
[2023-04-29] MEDS ORDERED: METOPROLOL SUC100 M1 PO (08:57)
[2023-05-06] MEDS ORDERED: Lopressor25 MG PO (17:33)
[2023-05-06] MEDS ORDERED: FLUTICASONE PRO12 G3 INH (17:39)
[2023-05-07] MEDS ORDERED: 'CLONIDINE0.1 MG PO (09:07)
[2023-05-07] MEDS ORDERED: ZOLOFT25 MG PO (09:07)
== END 2023-04-29 10:41 | disposition home or self-care (01) | DRG 305 ==
LOC: ED 23:26 → EDHOLD 04-28 02:34 → 4E 04-28 02:34
PROVIDERS: Internal Medicine; ADMIT Internal Medicine; ATTEND Internal Medicine
DX: I16.9 Hypertensive crisis, unspecified (principal); F41.1 Generalized anxiety disorder; I11.9 Hypertensive heart disease without heart failure; I25.10 Atherosclerotic heart disease of native coronary artery without angina pectoris; I48.0 Paroxysmal atrial fibrillation; I25.2 Old myocardial infarction

== ENCOUNTER 2023-04-29 23:42 | Emergency (ER) | payer MEDICARE ==
[~2023-04-29 23:42] MED LIST changes: +LISINOPRIL20 MG PO; +METOPROLOL SUC100 M1 PO; +TOPROL XL25 MG PO
[2023-04-29 23:52] VITALS: BP 156/77
== END 2023-04-29 23:58 | disposition home or self-care (01) ==
LOC: ED 23:42
DX: F41.9 Anxiety disorder, unspecified (principal); I10 Essential (primary) hypertension; R73.9 Hyperglycemia, unspecified; J45.909 Unspecified asthma, uncomplicated; K21.9 Gastro-esophageal reflux disease without esophagitis; I48.91 Unspecified atrial fibrillation; Z91.041 Radiographic dye allergy status; Z88.5 Allergy status to narcotic agent; Z88.1 Allergy status to other antibiotic agents; Z91.018 Allergy to other foods; Z90.710 Acquired absence of both cervix and uterus; Z98.890 Other specified postprocedural states

== ENCOUNTER → 2023-06-04 | Outpatient (CLI) | payer MEDICARE ==
[~2023-06-04] MED LIST changes: +'CLONIDINE0.1 MG PO; +FLUTICASONE PRO12 G3 INH; +Regadenoson 0.4 MG/5 ML SYR IV ONE; +Technetium Tc 99M Tetrofosmi 0.23 MG KIT IJ SCH; +VITAMIN D3125 MC1 PO; +ZOLOFT25 MG PO
== END | disposition home or self-care (01) ==
LOC: CARD 00:08
PROVIDERS: ATTEND Internal Medicine
DX: I44.7 Left bundle-branch block, unspecified (principal)

== ENCOUNTER 2023-06-27 09:08 | Emergency (ER) | payer MEDICARE ==
[~2023-06-27] VITALS: Ht 152.4 cm; Wt 67.1 kg
[~2023-06-27 09:08] MED LIST changes: -Regadenoson 0.4 MG/5 ML SYR IV ONE; -Technetium Tc 99M Tetrofosmi 0.23 MG KIT IJ SCH
[2023-06-27 09:44] VITALS: BP 143/41
== END 2023-06-27 11:47 | disposition home or self-care (01) ==
LOC: ED 09:08
DX: M25.562 Pain in left knee (principal); I10 Essential (primary) hypertension; J45.909 Unspecified asthma, uncomplicated; F41.9 Anxiety disorder, unspecified; I48.91 Unspecified atrial fibrillation; Z91.041 Radiographic dye allergy status; Z88.1 Allergy status to other antibiotic agents; Z88.5 Allergy status to narcotic agent; Z91.018 Allergy to other foods; Z98.890 Other specified postprocedural states; Z90.710 Acquired absence of both cervix and uterus; W19.XXXA Unspecified fall, initial encounter

== ENCOUNTER → 2023-11-19 | Outpatient (CLI) | payer MEDICARE ==
[2023-11-19 11:03] LABS: POTASSIUM 4.1 mmol/L (3.4-5.1)
== END | disposition home or self-care (01) ==
LOC: LAB 10:10
PROVIDERS: ATTEND Internal Medicine
DX: N18.30 Chronic kidney disease, stage 3 unspecified (principal)

== ENCOUNTER → 2024-05-18 | Outpatient (CLI) | payer MEDICARE ==
[2024-05-18 11:41] LABS: HEMATOCRIT 44.5 % (37.0-47.0); MEAN CELL VOLUME 86.6 fl (81.0-99.0); MEAN CORPUSCULAR HGB CONC 31.2 g/dl (33.0-37.0); MEAN PLATELET VOLUME 9.1 fl (9.6-12.3); RED BLOOD COUNT 5.14 10*6/uL (4.10-5.10); RED CELL DISTRI WIDTH 12.8 % (0-14.5); WHITE BLOOD COUNT 7.5 10*3/uL (4.8-10.8)
[2024-05-18 12:18] LABS: ALKALINE PHOSPHATASE 59 U/L (46-116); BUN 20 mg/dl (9-23); CHLORIDE 100 mmol/L (98-107); CHOLESTEROL 141 mg/dL (<200); CPK 55 U/L (34-171); LDL CHOLESTEROL 59 mg/dL (9-159); POTASSIUM 4.3 mmol/L (3.4-5.1); SGPT/ALT 11 U/L (5-49); TOTAL PROTEIN 7.5 gm/dL (6.0-8.0); TRIGLYCERIDES 182 mg/dl (<150)
== END | disposition home or self-care (01) ==
LOC: US 10:30 → LAB 10:34
PROVIDERS: ATTEND Family Medicine
DX: I65.23 Occlusion and stenosis of bilateral carotid arteries (principal); R09.89 Other specified symptoms and signs involving the circulatory and respiratory systems; E78.00 Pure hypercholesterolemia, unspecified; E55.9 Vitamin D deficiency, unspecified; E74.9 Disorder of carbohydrate metabolism, unspecified; I10 Essential (primary) hypertension; K21.9 Gastro-esophageal reflux disease without esophagitis; R53.83 Other fatigue

== ENCOUNTER 2024-07-18 11:49 | Emergency (ER) | payer MEDICARE ==
[~2024-07-18] VITALS: Ht 152.4 cm; Wt 68.5 kg
[2024-07-18 12:03] VITALS: BP 184/54
[2024-07-18 12:42] LABS: BASO % 0.4 % (0.0-1.0); EOS # 0.1 10*3/uL (0.0-0.4); EOS % 1.8 % (1.0-4.0); HEMATOCRIT 43.1 % (37.0-47.0); MEAN CELL VOLUME 85.3 fl (81.0-99.0); MEAN CORPUSCULAR HGB 26.9 pg (27.0-31.0); MEAN CORPUSCULAR HGB CONC 31.6 g/dl (33.0-37.0); MEAN PLATELET VOLUME 8.8 fl (9.6-12.3); MONO # 0.8 10*3/uL (0.1-1.0); MONO % 9.7 % (3.0-9.0); NEUT # 5.6 10*3/uL (2.3-7.9); NEUT % 70.5 % (47.0-73.0); PLATELET COUNT AUTOMATED 164 10*3/uL (130-400); RED BLOOD COUNT 5.05 10*6/uL (4.10-5.10); RED CELL DISTRI WIDTH 13.5 % (0-14.5); WHITE BLOOD COUNT 7.9 10*3/uL (4.8-10.8)
[2024-07-18 13:07] LABS: BUN 15 mg/dl (9-23); CHLORIDE 100 mmol/L (98-107); POTASSIUM 4.1 mmol/L (3.4-5.1)
== END 2024-07-18 15:06 | disposition home or self-care (01) ==
LOC: ED 11:49
PROVIDERS: Nurse Practitioner Family
DX: I44.7 Left bundle-branch block, unspecified (principal); I48.91 Unspecified atrial fibrillation; K21.9 Gastro-esophageal reflux disease without esophagitis; F41.9 Anxiety disorder, unspecified; I11.0 Hypertensive heart disease with heart failure; I50.9 Heart failure, unspecified; I25.2 Old myocardial infarction; Z91.041 Radiographic dye allergy status; Z88.1 Allergy status to other antibiotic agents; Z88.5 Allergy status to narcotic agent; Z91.018 Allergy to other foods; Z79.899 Other long term (current) drug therapy; Z79.82 Long term (current) use of aspirin; Z90.710 Acquired absence of both cervix and uterus

== ENCOUNTER → 2024-08-05 | Outpatient (CLI) | payer MEDICARE | END | disposition home or self-care (01) | LOC: US 10:28 | PROVIDERS: ATTEND Physician Assistant | DX: M79.605 Pain in left leg (principal); M79.604 Pain in right leg; I73.9 Peripheral vascular disease, unspecified; I11.9 Hypertensive heart disease without heart failure ==

== ENCOUNTER 2024-08-29 08:20 | Emergency (ER) | payer MEDICARE ==
[~2024-08-29] VITALS: Ht 147.3 cm; Wt 67.1 kg
[2024-08-29 08:28] VITALS: BP 121/65
[2024-08-29] MEDS ORDERED: LIDOCAINE 1 EA PATCH T SCH (10:00)
[2024-08-29] MEDS ORDERED: LIDODERM1 EACH TD (10:35)
== END 2024-08-29 10:48 | disposition home or self-care (01) ==
LOC: ED 08:20
DX: S39.012A Strain of muscle, fascia and tendon of lower back, initial encounter (principal); Z91.041 Radiographic dye allergy status; Z88.1 Allergy status to other antibiotic agents; Z88.5 Allergy status to narcotic agent; Z91.018 Allergy to other foods; Z79.82 Long term (current) use of aspirin; Z79.899 Other long term (current) drug therapy; Z90.711 Acquired absence of uterus with remaining cervical stump; X50.1XXA Overexertion from prolonged static or awkward postures, initial encounter; Y93.89 Activity, other specified; Y92.89 Other specified places as the place of occurrence of the external cause; Y99.8 Other external cause status

== ENCOUNTER 2024-09-15 12:44 | Emergency (ER) | payer MEDICARE ==
[~2024-09-15] VITALS: Ht 147.3 cm; Wt 67.1 kg
[~2024-09-15 12:44] MED LIST changes: +LIDODERM1 EACH TD
[2024-09-15 12:49] VITALS: BP 142/79
[2024-09-15] MEDS ORDERED: FAMOTIDINE 50 ML IV ONE (13:05)
[2024-09-15 13:26] LABS: BASO # 0.0 10*3/uL (0.0-0.1); BASO % 0.4 % (0.0-1.0); EOS # 0.1 10*3/uL (0.0-0.4); EOS % 1.1 % (1.0-4.0); MEAN CELL VOLUME 86.0 fl (81.0-99.0); MEAN CORPUSCULAR HGB 27.2 pg (27.0-31.0); MEAN PLATELET VOLUME 9.2 fl (9.6-12.3); MONO # 0.5 10*3/uL (0.1-1.0); MONO % 6.3 % (3.0-9.0); NEUT # 5.5 10*3/uL (2.3-7.9); NEUT % 75.6 % (47.0-73.0); NUCLEATED RED BLOOD CELL 0.0 % (0.0-0.0); NUCLEATED RED BLOOD CELL 0.0 10*3/uL (0.0-0.0); PLATELET COUNT AUTOMATED 169 10*3/uL (130-400); RED CELL DISTRI WIDTH 13.2 % (0-14.5)
[2024-09-15 13:36] LABS: ACT PARTIAL THROMBO TIME 29.1 SECONDS (20.0-32.1)
[2024-09-15 13:46] LABS: BUN 28.0 mg/dl (9-23)
[2024-09-15] MEDS ORDERED: SODIUM CHLORIDE 0.9% 1,000 ML IV ONE (14:55)
[2024-09-15 14:58] LABS: BILIRUBIN Negative (Negative); BLOOD Negative (Negative); CLARITY Clear (Clear); COLOR Yellow (Yellow); KETONE Negative (Negative); LEUKO ESTERASE Negative (Negative); NITRITE Negative (Negative); PH 5.0 (4.5-8.0); SPECIFIC GRAVITY 1.010 (1.001-1.030); UROBILINOGEN 0.2 E.U./dl (0.0-1.0)
[2024-09-15 15:10] LABS: EPITHELIAL CELLS 0-2; MUCOUS 1+; WBC 0-2 wbc/hpf (0-5)
== END 2024-09-15 16:18 | disposition home or self-care (01) ==
LOC: ED 12:44
PROVIDERS: Internal Medicine
DX: R10.13 Epigastric pain (principal); Z90.710 Acquired absence of both cervix and uterus; Z88.5 Allergy status to narcotic agent; Z88.8 Allergy status to other drugs, medicaments and biological substances